=== PATIENT | female | born 1950 | race Caucasian/White ===

== ENCOUNTER 2018-02-09 14:12 | Emergency (ER) | payer MEDICARE ==
[2018-02-09 14:12] VITALS: BMI 41.1
--- NOTE | 2018-02-09 14:44 | ED PDOC ---
Syncope/Near Syncope/Dizziness Time Seen by Provider: 02/09/18 14:35 Chief Complaint (Nursing): Dizziness/Lightheaded History Per: Patient Onset/Duration Of Symptoms: Days (3) Current Symptoms Are (Timing): Still Present Associated Symptoms Preceding Syncopal Episode: No Predromal Symptoms (Sudden Onset) Seizure Or Post-ictal Symptoms: None Possible Causative Factor(s): Vertigo Fall Associated With With Symptoms: No Severity: Mild Additional Complaint(s): Dizziness assoc with headcahes x 3 days. Worse when moving head No LOC. Not assoc with weakness or parasthesias. Past Medical History Vital Signs: Last Vital Signs Temp 98.7 F 02/09/18 14:29 Pulse 63 02/09/18 14:29 Resp 20 02/09/18 14:29 BP 146/81 02/09/18 14:29 Pulse Ox 98 02/09/18 14:29 - Medical History PMH: Anxiety, Arthritis, Asthma, Gastritis, Gall Bladder Disease, HTN, Hypercholesterolemia, Hyperthyroidism, Hypothyroidism Denies: Chronic Kidney Disease - Surgical History Surgical History: Cholecystectomy - Family History Family History: States: Unknown Family Hx - Home Medications Home Medications: Ambulatory Orders Medication Instructions Recorded Levothyroxine Sodium 50 mcg PO DAILY 09/17/14 Melatonin 10 mg PO HS 09/17/14 Metoprolol Tartrate 25 mg PO Q12 09/17/14 Omeprazole 40 mg PO DAILY 09/17/14 Simvastatin 20 mg PO DAILY 09/17/14 Zolpidem Tartrate [Ambien] 10 mg PO HS 09/17/14 Dicyclomine [Bentyl] 10 mg PO QID #0 cap 09/19/14 Acetaminophen/Butalbital/Caf 1 tab PO PRN 11/15/14 [Fioricet 325 mg-50 mg-40 mg] Albuterol HFA [Ventolin HFA 90 1 puff INH Q6 11/15/14 mcg/actuation (8 g)] Ondansetron [Zofran] 4 mg PO Q8H PRN #10 tab 01/18/16 Amoxicillin/Potassium Clav 1 tab PO TID #30 tab 02/09/18 [Augmentin 500 mg-125 mg] Naproxen [Naprosyn] 500 mg PO Q12H #20 tab 02/09/18 - Allergies Allergies/Adverse Reactions: Allergies Allergy/AdvReac Type Severity Reaction Status Date / Time morphine Allergy RASH Verified 02/09/18 14:28 acetaminophen [From Percocet] AdvReac DIZZINESS Verified 02/09/18 14:28 oxycodone HCl [From Percocet] AdvReac DIZZINESS Verified 02/09/18 14:28 Review of Systems ROS Statement: Except As Marked, All Systems Reviewed And Found Negative Gastrointestinal: Negative for: Nausea, Vomiting Neurological: Positive for: Headache, Dizziness Physical Exam - Reviewed Nursing Documentation Reviewed: Yes Vital Signs Reviewed: Yes - Physical Exam Appears: Positive for: Non-toxic, No Acute Distress Head Exam: Positive for: ATRAUMATIC, NORMAL INSPECTION, NORMOCEPHALIC Skin: Positive for: Normal Color, Warm, DRY Eye Exam: Positive for: EOMI, Normal appearance, PERRL ENT: Positive for: Normal ENT Inspection Neck: Positive for: Normal, Painless ROM Cardiovascular/Chest: Positive for: Regular Rate, Rhythm Respiratory: Positive for: CNT, Normal Breath Sounds Gastrointestinal/Abdominal: Positive for: Normal Exam, Soft Back: Positive for: Normal Inspection Extremity: Positive for: Normal ROM Neurologic/Psych: Positive for: Alert, Oriented - ECG O2 Sat by Pulse Oximetry: 98 Disposition - Clinical Impression Clinical Impression: Sinusitis - Patient ED Disposition Is Patient to be Admitted: No Counseled Patient/Family Regarding: Studies Performed, Diagnosis, Need For Followup, Rx Given - Disposition Referrals: Dylon Vazquez MD [Staff Provider] - Disposition: Routine/Home Disposition Time: 18:10 Condition: FAIR Prescriptions: Amoxicillin/Potassium Clav [Augmentin 500 mg-125 mg] 1 tab PO TID #30 tab Naproxen [Naprosyn] 500 mg PO Q12H #20 tab Instructions: Sinusitis in Adults Forms: [facility] (Egyptian) Print Language: UPPER SORBIAN
[2018-02-09 15:00] VITALS: BP 146/81; PULSE 63; RESP 20; TEMP 98.7; O2SAT 98
[2018-02-09] MEDS ORDERED: Sodium Chloride 0.9% 1,000 ML IV STA (16:10)
--- NOTE | 2018-02-09 17:03 | CT ---
PROCEDURE: CT HEAD WITHOUT CONTRAST. HISTORY: r/o bleed COMPARISON: 09/10/2011. TECHNIQUE: Axial computed tomography images were obtained through the head/brain without intravenous contrast. Radiation dose: Total exam DLP = 840.32 mGy-cm. This CT exam was performed using one or more of the following dose reduction techniques: Automated exposure control, adjustment of the mA and/or kV according to patient size, and/or use of iterative reconstruction technique. FINDINGS: HEMORRHAGE: No intracranial hemorrhage. BRAIN: Coy-white matter differentiation is preserved. There is no mass, mass effect or abnormal extra-axial fluid collection. There is no territorial infarction. VENTRICLES: The ventricles are normal in size, shape and configuration. There is stable asymmetric enlargement of the left high parietal sulcus. CALVARIUM: Predominantly clear. PARANASAL SINUSES: There is chronic pansinusitis. There are aerosolized secretions in the right maxillary and right sphenoid sinus. MASTOID AIR CELLS: Unremarkable as visualized. No inflammatory changes. OTHER FINDINGS: None. IMPRESSION: No acute intracranial abnormality. Chronic pansinusitis. Aerosolized secretions in the right maxillary and right sphenoid sinuses may represent superimposed acute sinusitis in the appropriate clinical setting.
--- NOTE | 2018-02-10 08:06 | CARD ---
APPROVED REPORT EKG Measurement Heart [id number] <Conclusion> Sinus bradycardia Left axis deviation Right bundle branch block Abnormal ECG
== END 2018-02-09 18:50 | disposition home or self-care (01) ==
LOC: H.ER 14:12
DX: J32.4 Chronic pansinusitis (principal); I10 Essential (primary) hypertension; J45.909 Unspecified asthma, uncomplicated; Z88.5 Allergy status to narcotic agent; E03.9 Hypothyroidism, unspecified; E05.90 Thyrotoxicosis, unspecified without thyrotoxic crisis or storm
CPT/HCPCS: 70450; 93005; 96374; 99285; J1885; J7040

== ENCOUNTER 2018-07-14 15:27 | Inpatient (IN) | payer MEDICARE ==
[2018-07-14 15:27] VITALS: BMI 41.1
[2018-07-14] MEDS ORDERED: Sodium Chloride 0.9% 1,000 ML IV STA ×2 (16:08→16:45)
[2018-07-14 16:27] LABS: BASO % 0.3 % (0.0-2.0); EOS % 0.2 % (0.0-4.0); LYMPH # 0.4 K/uL (1.0-4.3); LYMPH % 6.9 % (20.0-40.0); MEAN CELL VOLUME 88.4 fl (81.0-99.0); MEAN CORPUSCULAR HEMOGLOBIN 30.3 pg (27.0-31.0); MEAN CORPUSCULAR HGB CONC 34.3 g/dL (33.0-37.0); MEAN PLATELET VOLUME 9.8 fl (7.2-11.7); MONO # 0.1 K/uL (0.0-0.8); MONO % 2.3 % (0.0-10.0); NEUT # 5.5 K/uL (1.8-7.0); NEUT % 90.3 % (50.0-75.0); NRBC % 0.2 % (0.0-0.0); PLATELET COUNT 109 K/uL (130-400); RBC 4.96 Mil/uL (3.80-5.20); RED CELL DISTRIBUTION WIDTH 13.3 % (11.5-14.5); WHITE BLOOD COUNT 6.1 K/uL (4.8-10.8)
[2018-07-14 16:28] LABS: VENOUS BLOOD GAS BASE EXCESS -0.2 mmol/L (0.0-2.0); VENOUS BLOOD GAS PCO2 37 mmHg (40-60); VENOUS BLOOD GAS PO2 27 mm/Hg (30-55); VENOUS BLOOD PH 7.42 (7.32-7.43)
--- NOTE | 2018-07-14 16:28 | ED PDOC ---
HPI: General Adult Time Seen by Provider: 07/14/18 15:38 Chief Complaint (Nursing): Weakness/Neurological Deficit Chief Complaint (Provider): General discomfort History Per: Family History/Exam Limitations: no limitations Additional Complaint(s): 67yo female, brought to ER by daughter who states the patient has not gotten out of bed since yesterday. She reports the patient had shaking chills today, prompting her to call 911 and come to the ER. Currently, patient complaining of low back pain and mild cough. PMD: Dr. Fragoso Past Medical History Reviewed: Historical Data, Nursing Documentation, Vital Signs Vital Signs: Last Vital Signs Temp 98.4 F 07/18/18 08:32 Pulse 73 07/18/18 09:16 Resp 20 07/18/18 08:32 BP 114/68 07/18/18 09:16 Pulse Ox 98 07/18/18 08:32 - Medical History PMH: Anxiety, Arthritis, Asthma, Gastritis, Gall Bladder Disease, HTN, Hypercholesterolemia, Hyperthyroidism, Hypothyroidism Denies: Chronic Kidney Disease - Surgical History Surgical History: Cholecystectomy - Family History Family History: States: No Known Family Hx - Living Arrangements Living Arrangements: With Family - Home Medications Home Medications: Ambulatory Orders Medication Instructions Recorded Levothyroxine Sodium 50 mcg PO DAILY 09/17/14 Melatonin 10 mg PO HS 09/17/14 Metoprolol Tartrate 25 mg PO Q12 09/17/14 Omeprazole 40 mg PO DAILY 09/17/14 Simvastatin 20 mg PO DAILY 09/17/14 Zolpidem Tartrate [Ambien] 10 mg PO HS 09/17/14 Albuterol HFA [Ventolin HFA 90 1 puff INH Q6 11/15/14 mcg/actuation (8 g)] Ondansetron [Zofran Tab] 4 mg PO Q8H PRN #10 tab 01/18/16 Acetaminophen/Butalbital/Caf 1 tab PO Q4 PRN tab 07/17/18 [Fioricet] Meropenem [Merrem IV] 1 gm IVPB Q8 7 Days #21 vial 07/17/18 Dicyclomine [Bentyl] 10 mg PO QID 07/18/18 Enoxaparin [Lovenox] 40 mg SQ DAILY 07/18/18 Pantoprazole Sodium [Protonix] 40 mg PO DAILY 07/18/18 traMADol [Ultram] 50 mg PO Q6 PRN 07/18/18 - Allergies Allergies/Adverse Reactions: Allergies Allergy/AdvReac Type Severity Reaction Status Date / Time morphine Allergy RASH Verified 07/18/18 15:02 acetaminophen [From Percocet] AdvReac DIZZINESS Verified 07/18/18 15:02 oxycodone HCl [From Percocet] AdvReac DIZZINESS Verified 07/18/18 15:02 Review of Systems ROS Statement: Except As Marked, All Systems Reviewed And Found Negative Constitutional: Positive for: Fever, Chills Cardiovascular: Negative for: Chest Pain Respiratory: Positive for: Cough. Negative for: Shortness of Breath Gastrointestinal: Negative for: Nausea, Vomiting, Abdominal Pain Musculoskeletal: Positive for: Back Pain Physical Exam - Reviewed Nursing Documentation Reviewed: Yes Vital Signs Reviewed: Yes - Physical Exam Appears: Positive for: In Acute Distress. Negative for: Non-toxic (+ toxic appearing) Head Exam: Positive for: ATRAUMATIC, NORMAL INSPECTION, NORMOCEPHALIC Skin: Positive for: Warm Eye Exam: Positive for: EOMI, Normal appearance, PERRL ENT: Positive for: Other (dry mucus membranes). Negative for: Pharyngeal Erythema, Tonsillar Exudate, Tonsillar Swelling Neck: Positive for: Normal, Painless ROM Cardiovascular/Chest: Positive for: Regular Rate, Rhythm, Tachycardia Respiratory: Positive for: Normal Breath Sounds. Negative for: Rales, Rhonchi, Wheezing, Respiratory Distress Gastrointestinal/Abdominal: Positive for: Soft, Tenderness (left lower quadrant) . Negative for: Mass, Guarding, Rebound Back: Positive for: Normal Inspection. Negative for: L CVA Tenderness, R CVA Tenderness, Vertebral Tenderness, Muscle Spasm Extremity: Positive for: Normal ROM. Negative for: Pedal Edema Neurologic/Psych: Positive for: Alert, Oriented. Negative for: Motor/Sensory Deficits - Laboratory Results Result Diagrams: 07/17/18 05:55 07/17/18 05:55 - ECG O2 Sat by Pulse Oximetry: 98 (RA) Pulse Ox Interpretation: Normal - Radiology X-Ray: Interpreted by Me X-Ray Interpretation: No Acute Disease Medical Decision Making Medical Decision Making: Impression: Likely Sepsis Plan: * Labs * EKG * Chest x-ray * Urinalysis * CT Abdomen/Pelvis w/ contrast * Rapid Strep * Rapid Influenza * Motrin 600mg PO * IV Fluids 2L * VBG Time: 1700 --Patient signed out to DR. Diaz by this provider, pending CT. Scribe Attestation: Documented by Trisha Graves, acting as a scribe for Damari Jin MD. Provider Scribe Attestation: All medical record entries made by the Scribe were at my direction and personally dictated by me. I have reviewed the chart and agree that the record accurately reflects my personal performance of the history, physical exam, medical decision making, and the department course for this patient. I have also personally directed, reviewed, and agree with the discharge instructions and disposition. Disposition - Clinical Impression Clinical Impression: Abdominal pain, Generalized muscle weakness, Abnormal finding of biliary tract , SIRS (systemic inflammatory response syndrome) - Disposition Disposition: Transfer of Care Disposition Time: 17:00 Condition: STABLE Patient Signed Over To: Addie Diaz
[2018-07-14 16:36] LABS: INR 1.2; PROTHROMBIN TIME 13.3 Seconds (9.8-13.1)
[2018-07-14 16:39] LABS: PARTIAL THROMBOPLASTIN TIME 29.2 Seconds (25.6-37.1)
[2018-07-14 16:44] LABS: ALB/GLOB RATIO 1.1 (1.0-2.1); ALBUMIN 4.5 g/dL (3.5-5.0); ALT/SGPT 19 U/L (9-52); AST/SGOT 49 U/L (14-36); BLOOD UREA NITROGEN 12 mg/dl (7-17); CALCIUM 9.3 mg/dL (8.4-10.2); GFR NON-AFRICAN AMERICAN 50
[2018-07-14 16:51] LABS: SQUAMOUS EPITHIAL 1 /hpf (0-5); URINE BILIRUBIN NEGATIVE (NEGATIVE); URINE BLOOD NEGATIVE (NEGATIVE); URINE CLARITY CLEAR (Clear); URINE COLOR YELLOW (YELLOW); URINE GLUCOSE (UA) NEG (Normal); URINE LEUKOCYTE ESTERASE NEG Leu/uL (Negative); URINE PROTEIN 30 mg/dL (NEGATIVE); URINE UROBILINOGEN 0.2-1.0 mg/dL (0.2-1.0)
--- NOTE | 2018-07-14 17:36 | ED PDOC ---
- Laboratory Results Result Diagrams: 07/15/18 05:35 07/15/18 05:35 - ECG O2 Sat by Pulse Oximetry: 95 (RA) Pulse Ox Interpretation: Normal Medical Decision Making Medical Decision Making: Time: 1699 --Patient signed out to this provider by Dr. Jin. Patient is a 67 year old female presenting for dizziness, lower abdominal pain, back pain, febrile and tachycardic. Patient is meeting SIRS criteria and already received 2 liters. Source is currently unknown. Patient is refusing Tylenol, given ibuprofen. Currently pending CT scan, most likely admission. Time: 1899 --No change in patients status while provider has been managing care. Patient continues to be pending CT and pain control. Patient signed out to Dr. Mendieta. Scribe Attestation: Documented by Kathleen Tafoya, acting as a scribe for Addie Diaz MD Provider Scribe Attestation: All medical record entries made by the Scribe were at my direction and personally dictated by me. I have reviewed the chart and agree that the record accurately reflects my personal performance of the history, physical exam, medical decision making, and the department course for this patient. I have also personally directed, reviewed, and agree with the discharge instructions and disposition. Disposition - Clinical Impression Clinical Impression: Abdominal pain, Generalized muscle weakness - POA Present On Arrival: None - Disposition Disposition: Transfer of Care Disposition Time: 19:00 Condition: STABLE
[2018-07-14 18:33] LABS: BANDS 2 % (0-2); LYMPHOCYTE 7 % (20-50); MONOCYTE 1 % (0-10); NEUTROPHIL 90 % (42-75); PLATELET ESTIMATE DECREASED (NORMAL); TOTAL CELLS COUNTED 100
[2018-07-14] MEDS ORDERED: Iodixanol 320 MG/ML 100 ML BOTTLE IV ONE (18:42)
[2018-07-14] MEDS ORDERED: Sodium Chloride 0.9% 50 ML IV ONE (18:42)
--- NOTE | 2018-07-14 19:42 | ED PDOC ---
- Laboratory Results Result Diagrams: 07/16/18 06:01 07/16/18 06:01 - ECG O2 Sat by Pulse Oximetry: 100 (RA) Pulse Ox Interpretation: Normal Medical Decision Making Medical Decision Making: Time: 1899 --Patient signed out to this provider by Dr. Diaz, pending CT Abdomen. Time: 2042 CT abdomen and pelvis FINDINGS: Lower thorax: Mosaic attenuation of the imaged lungs, new since the prior study. ABDOMEN: Liver: Several redemonstrated smoothly marginated hepatic cysts, the largest of which measures 15 mm. Several subcentimeter low-attenuation lesions in the left liver lobe that are not definitely appreciated on the prior unenhanced examination (series 601, images 29-35). Gallbladder and bile ducts: Redemonstrated cholecystectomy clips. 3 mm moderately high attenuation structure in the distal common bile duct (series 3, image 62). No corresponding abnormality is identified on the prior study. Mild extrahepatic biliary ductal prominence is unchanged from the prior study and within expected limits post cholecystectomy. Pancreas: Redemonstrated fatty infiltration of the pancreas. No pancreatic ductal dilation. No peripancreatic fat stranding or fluid. Spleen: No acute findings. Adrenals: No acute findings. Kidneys and ureters: Bilateral low-attenuation renal lesions, the largest of which measures 15 mm in the right kidney (series 3, image 64; series 602, image 74), measures higher attenuation than simple fluid, and is not definitely identified on the previous unenhanced examination. No urinary tract dilation, perinephric fat stranding, or evident urinary tract calculi. Stomach and bowel: Redemonstrated postsurgical bowel anatomy consistent with prior Juan Carlos-en-Y gastric bypass. No bowel obstruction or other evident acute abnormality of the stomach, small bowel, or colon. Appendix: Normal appendix. PELVIS: Bladder: The bladder is moderately distended but otherwise normal in appearance. Reproductive: No evident acute abnormality of the gynecologic structures. ABDOMEN and PELVIS: Intraperitoneal space: No free intraperitoneal fluid or air. Bones/joints: No evident acute fracture or suspicious osseous lesion. Redemonstrated multilevel degenerative changes of the imaged spine. Soft tissues: Redemonstrated small, fat-containing umbilical hernia with no associated complications. Vasculature: No acute findings. The abdominal aorta is normal in caliber. Lymph nodes: No enlarged abdominal or pelvic lymph nodes by CT criteria. IMPRESSION: 1. No etiology for the patient's left sided pain is identified. 2. Several low-attenuation renal lesions as described above, the largest of which is incompletely characterized but is not consistent with a simple cyst. Follow up per institution protocol. 3. A 3 mm moderately high attenuation structure in the distal common bile duct may be a calculus or neoplasm. No evidence of acute biliary ductal obstruction. If clinically warranted, further evaluation could be obtained with an MRCP. 4. Several redemonstrated small hepatic cysts. Several subcentimeter low- attenuation liver lesions that are not definitely appreciated on the prior unenhanced examination and are incompletely characterized. Follow up per institution protocol. 5. Mosaic attenuation of the imaged lungs, new since the prior study. Differential diagnosis includes but is not limited to subsegmental atelectasis, small airways disease (e.g., asthma, bronchiolitis obliterans), small vessel disease (e.g., chronic pulmonary embolism), and an infiltrative process (e.g., Pneumocystis pneumonia, hypersensitivity pneumonitis, interstitial pneumonitis). 6. The bladder is moderately distended but otherwise normal in appearance. 7. Additional redemonstrated and nonacute findings as described above. 21:17 Reviewed all findings and CT scan. Discussed admission with Dr. Valladares who is patient's PMD, who said he can not admit currently so patient will be admitted to medical services. Spoke with Dr. Fu who will admit patient. Scribe Attestation: Documented by Kathleen Tafoya and Yrn, acting as a scribe for Dixon Mendieta MD Provider Scribe Attestation: All medical record entries made by the Scribe were at my direction and personally dictated by me. I have reviewed the chart and agree that the record accurately reflects my personal performance of the history, physical exam, medical decision making, and the department course for this patient. I have also personally directed, reviewed, and agree with the discharge instructions and disposition. Disposition Discussed With DrAfrica: Nasir Fu Counseled Patient/Family Regarding: Studies Performed, Diagnosis - Clinical Impression Clinical Impression: Abdominal pain, Generalized muscle weakness, Abnormal finding of biliary tract , SIRS (systemic inflammatory response syndrome) - POA Present On Arrival: None - Disposition Disposition: Hospitalized as Observation Patient Disposition Time: 21:00 Condition: STABLE
[2018-07-14] MEDS ORDERED: Piperacillin/Tazobact 3.375 GM in Sodium Chloride 0.9% 100 ML IVPB STA (20:47)
[2018-07-14] MEDS ORDERED: Piperacillin/Tazobact 3.375 gm Inj IVPB ONE (20:53)
[2018-07-14 22:36] LABS: VENOUS BLOOD GAS BASE EXCESS -1.7 mmol/L (0.0-2.0); VENOUS BLOOD GAS PCO2 38 mmHg (40-60); VENOUS BLOOD GAS PO2 54 mm/Hg (30-55); VENOUS BLOOD PH 7.39 (7.32-7.43)
[2018-07-15] MEDS: Piperacillin/Tazobact 3.375 GM in Sodium Chloride 0.9% 100 ML IVPB SCH ×3 (01:46→17:22)
[2018-07-15] MEDS: Albuterol HFA 90 mcg/actuation (8 g) INH SCH ×5 (03:19→21:22)
[2018-07-15] MEDS ORDERED: BUTALBITAL PO SCH (04:00)
[2018-07-15] MEDS ORDERED: ACETAMINOPHEN PO SCH (04:00)
[2018-07-15] MEDS ORDERED: CAFFEINE PO SCH (04:00)
[2018-07-15] MEDS: Levothyroxine 50 MCG TAB PO SCH (05:59)
[2018-07-15 06:18] LABS: BASO % 0.5 % (0.0-2.0); EOS # 0.1 K/uL (0.0-0.7); HEMOGLOBIN 12.9 g/dL (12.0-16.0); LYMPH # 0.9 K/uL (1.0-4.3); LYMPH % 14.4 % (20.0-40.0); MEAN CELL VOLUME 89.4 fl (81.0-99.0); MEAN CORPUSCULAR HGB CONC 33.6 g/dL (33.0-37.0); MEAN PLATELET VOLUME 9.2 fl (7.2-11.7); MONO # 0.5 K/uL (0.0-0.8); MONO % 7.4 % (0.0-10.0); NEUT # 4.7 K/uL (1.8-7.0); NEUT % 76.7 % (50.0-75.0); RBC 4.32 Mil/uL (3.80-5.20); RED CELL DISTRIBUTION WIDTH 13.2 % (11.5-14.5); WHITE BLOOD COUNT 6.2 K/uL (4.8-10.8)
[2018-07-15 06:22] LABS: ALB/GLOB RATIO 1.1 (1.0-2.1); ALBUMIN 3.4 g/dL (3.5-5.0); ALT/SGPT 25 U/L (9-52); AST/SGOT 32 U/L (14-36); BLOOD UREA NITROGEN 13 mg/dl (7-17); CALCIUM 8.5 mg/dL (8.4-10.2); GFR NON-AFRICAN AMERICAN 50
--- NOTE | 2018-07-15 07:34 | CARD ---
APPROVED REPORT Date of service: 07/14/2018 EKG Measurement Heart [id number] <Conclusion> Sinus tachycardia Right bundle branch block Left anterior fascicular block Bifascicular block Minimal voltage criteria for LVH, may be normal variant Abnormal ECG
--- NOTE | 2018-07-15 09:07 | CP.PCM.HP ---
<Saeed Patiño - Last Filed: 07/15/18 18:33> History of Present Illness - History of Present Illness History of Present Illness: Pt seen and examined at bedside with Dr. Fu. 67 yo F with pmhx of asthma, dyslipidemia, htn presented to the ED with diffuse chills, dizziness, lumbar pain and cough. CT A/P with contrast SIRS positive pmd: Dr. Fragoso surg: cholecystectomy, gastric Soc: denies smoking, alcohol, illicit drugs fmhx: breast cancer Allergies to morphine, acetaminophen and oxycodone (percocet) Present on Admission - Present on Admission Any Indicators Present on Admission: No History of Uncontrolled Diabetes: No Review of Systems - Constitutional Constitutional: As Per HPI - Cardiovascular Cardiovascular: absent: Chest Pain - Respiratory Respiratory: absent: Cough, Dyspnea - Gastrointestinal Gastrointestinal: Abdominal Pain - Musculoskeletal Musculoskeletal: Back Pain - Neurological Neurological: Dizziness, Weakness Past Patient History - Infectious Disease Hx of Infectious Diseases: None - Past Medical History & Family History Past Medical History?: Yes - Past Social History Smoking Status: Never Smoked Alcohol: None Drugs: Denies Home Situation {Lives}: With Family - CARDIAC Hx Cardiac Disorders: Yes - PULMONARY Hx Respiratory Disorders: Yes - NEUROLOGICAL Hx Neurological Disorder: No - HEENT Hx HEENT Problems: No - RENAL Hx Chronic Kidney Disease: No - ENDOCRINE/METABOLIC Hx Hyperthyroidism: Yes Hx Hypothyroidism: Yes - HEMATOLOGICAL/ONCOLOGICAL Hx Blood Disorders: No - INTEGUMENTARY Hx Dermatological Problems: No - MUSCULOSKELETAL/RHEUMATOLOGICAL Hx Arthritis: Yes Hx Falls: No - GASTROINTESTINAL Hx Gall Bladder Disease: Yes Hx Gastritis: Yes - GENITOURINARY/GYNECOLOGICAL Hx Genitourinary Disorders: No - PSYCHIATRIC Hx Anxiety: Yes Hx Substance Use: No - SURGICAL HISTORY Hx Cholecystectomy: Yes - ANESTHESIA Hx Anesthesia: Yes Hx Anesthesia Reactions: No Hx Malignant Hyperthermia: No Meds Allergies/Adverse Reactions: Allergies Allergy/AdvReac Type Severity Reaction Status Date / Time morphine Allergy RASH Verified 07/14/18 15:33 acetaminophen [From Percocet] AdvReac DIZZINESS Verified 07/14/18 15:33 oxycodone HCl [From Percocet] AdvReac DIZZINESS Verified 07/14/18 15:33 Physical Exam - Eye Exam Eye Exam: EOMI - Respiratory Exam Respiratory Exam: Clear to Auscultation Bilateral, NORMAL BREATHING PATTERN. absent: Wheezes - Cardiovascular Exam Cardiovascular Exam: +S1, +S2 - GI/Abdominal Exam GI & Abdominal Exam: Normal Bowel Sounds, Soft, Tenderness (mild) - Neurological Exam Neurological exam: Alert, CN II-XII Intact, Oriented x3 - Psychiatric Exam Psychiatric exam: Normal Affect, Normal Mood Results - Vital Signs Recent Vital Signs: Last Vital Signs Temp 97.7 F 07/15/18 07:44 Pulse 67 07/15/18 07:44 Resp 20 07/15/18 07:44 BP 124/70 07/15/18 07:44 Pulse Ox 99 07/15/18 07:44 - Labs Result Diagrams: 07/15/18 05:35 07/15/18 05:35 Labs: Laboratory Results - last 24 hr 07/14/18 07/14/18 07/14/18 10:30 15:48 16:18 WBC 6.1 RBC 4.96 Hgb 15.0 Hct 43.8 MCV 88.4 MCH 30.3 MCHC 34.3 RDW 13.3 Plt Count 109 L D MPV 9.8 Neut % (Auto) 90.3 H Lymph % (Auto) 6.9 L [place] % (Auto) 2.3 Eos % (Auto) 0.2 Baso % (Auto) 0.3 Neut # (Auto) 5.5 Lymph # (Auto) 0.4 L [place] # (Auto) 0.1 Eos # (Auto) 0.0 Baso # (Auto) 0.0 Neutrophils % (Manual) 90 H Band Neutrophils % 2 Lymphocytes % (Manual) 7 L Monocytes % (Manual) 1 Platelet Estimate Decreased L RBC Morphology Normal PT INR APTT pO2 54 VBG pH 7.39 VBG pCO2 38 L VBG HCO3 23.3 VBG Total CO2 24.2 VBG O2 Sat (Calc) 92.1 H VBG Base Excess -1.7 L VBG Potassium 3.4 L Sodium 137.0 Chloride 107.0 Glucose 137 H Lactate 0.8 FiO2 21.0 Potassium Carbon Dioxide Anion Gap BUN Creatinine Est GFR ( Amer) Est GFR (Non-Af Amer) POC Glucose (mg/dL) 111 H Random Glucose Calcium Phosphorus Magnesium Total Bilirubin AST ALT Alkaline Phosphatase Total Protein Albumin Globulin Albumin/Globulin Ratio TSH 3rd Generation Venous Blood Potassium 3.4 L Urine Color Urine Clarity Urine pH Ur Specific [place] Urine Protein Urine Glucose (UA) Urine Ketones Urine Blood Urine Nitrate Urine Bilirubin Urine Urobilinogen Ur Leukocyte Esterase Urine RBC (Auto) Urine Microscopic WBC Ur Squamous Epith Cells Influenza Typ A,B (EIA) Grp A Beta Strep Ag 07/14/18 07/14/18 07/14/18 16:18 16:18 16:25 WBC RBC Hgb Hct MCV MCH MCHC RDW Plt Count MPV Neut % (Auto) Lymph % (Auto) [place] % (Auto) Eos % (Auto) Baso % (Auto) Neut # (Auto) Lymph # (Auto) [place] # (Auto) Eos # (Auto) Baso # (Auto) Neutrophils % (Manual) Band Neutrophils % Lymphocytes % (Manual) Monocytes % (Manual) Platelet Estimate RBC Morphology PT 13.3 H INR 1.2 APTT 29.2 pO2 27 L VBG pH 7.42 VBG pCO2 37 L VBG HCO3 23.5 VBG Total CO2 25.1 VBG O2 Sat (Calc) 62.6 VBG Base Excess -0.2 L VBG Potassium 3.7 Sodium 136 134.0 Chloride 101 101.0 Glucose 116 H Lactate 1.5 FiO2 21.0 Potassium 4.1 Carbon Dioxide 24 Anion Gap 15 BUN 12 Creatinine 1.1 Est GFR ( Amer) > 60 Est GFR (Non-Af Amer) 50 POC Glucose (mg/dL) Random Glucose 114 H Calcium 9.3 Phosphorus 2.1 L Magnesium 1.5 L Total Bilirubin 2.2 H AST 49 H D ALT 19 Alkaline Phosphatase 93 Total Protein 8.5 H Albumin 4.5 Globulin 4.0 H Albumin/Globulin Ratio 1.1 TSH 3rd Generation Venous Blood Potassium 3.7 Urine Color Urine Clarity Urine pH Ur Specific [place] Urine Protein Urine Glucose (UA) Urine Ketones Urine Blood Urine Nitrate Urine Bilirubin Urine Urobilinogen Ur Leukocyte Esterase Urine RBC (Auto) Urine Microscopic WBC Ur Squamous Epith Cells Influenza Typ A,B (EIA) Grp A Beta Strep Ag 07/14/18 07/14/18 07/14/18 16:35 16:35 16:41 WBC RBC Hgb Hct MCV MCH MCHC RDW Plt Count MPV Neut % (Auto) Lymph % (Auto) [place] % (Auto) Eos % (Auto) Baso % (Auto) Neut # (Auto) Lymph # (Auto) [place] # (Auto) Eos # (Auto) Baso # (Auto) Neutrophils % (Manual) Band Neutrophils % Lymphocytes % (Manual) Monocytes % (Manual) Platelet Estimate RBC Morphology PT INR APTT pO2 VBG pH VBG pCO2 VBG HCO3 VBG Total CO2 VBG O2 Sat (Calc) VBG Base Excess VBG Potassium Sodium Chloride Glucose Lactate FiO2 Potassium Carbon Dioxide Anion Gap BUN Creatinine Est GFR ( Amer) Est GFR (Non-Af Amer) POC Glucose (mg/dL) Random Glucose Calcium Phosphorus Magnesium Total Bilirubin AST ALT Alkaline Phosphatase Total Protein Albumin Globulin Albumin/Globulin Ratio TSH 3rd Generation 1.20 Venous Blood Potassium Urine Color Urine Clarity Urine pH Ur Specific [place] Urine Protein Urine Glucose (UA) Urine Ketones Urine Blood Urine Nitrate Urine Bilirubin Urine Urobilinogen Ur Leukocyte Esterase Urine RBC (Auto) Urine Microscopic WBC Ur Squamous Epith Cells Influenza Typ A,B (EIA) Negative for flu a/b Grp A Beta Strep Ag Negative 07/14/18 07/15/18 07/15/18 16:46 05:35 05:35 WBC 6.2 RBC 4.32 Hgb 12.9 D Hct 38.6 MCV 89.4 MCH 30.0 MCHC 33.6 RDW 13.2 Plt Count 100 L MPV 9.2 Neut % (Auto) 76.7 H Lymph % (Auto) 14.4 L [place] % (Auto) 7.4 Eos % (Auto) 1.0 Baso % (Auto) 0.5 Neut # (Auto) 4.7 Lymph # (Auto) 0.9 L [place] # (Auto) 0.5 Eos # (Auto) 0.1 Baso # (Auto) 0.0 Neutrophils % (Manual) Band Neutrophils % Lymphocytes % (Manual) Monocytes % (Manual) Platelet Estimate RBC Morphology PT INR APTT pO2 VBG pH VBG pCO2 VBG HCO3 VBG Total CO2 VBG O2 Sat (Calc) VBG Base Excess VBG Potassium Sodium 140 Chloride 110 H Glucose Lactate FiO2 Potassium 3.9 Carbon Dioxide 25 Anion Gap 9 L BUN 13 Creatinine 1.1 Est GFR ( Amer) > 60 Est GFR (Non-Af Amer) 50 POC Glucose (mg/dL) Random Glucose 93 Calcium 8.5 Phosphorus Magnesium Total Bilirubin 1.3 AST 32 ALT 25 Alkaline Phosphatase 75 Total Protein 6.5 Albumin 3.4 L D Globulin 3.2 Albumin/Globulin Ratio 1.1 TSH 3rd Generation Venous Blood Potassium Urine Color Yellow Urine Clarity Clear Urine pH 6.0 Ur Specific [place] 1.013 Urine Protein 30 Urine Glucose (UA) Neg Urine Ketones Trace Urine Blood Negative Urine Nitrate Negative Urine Bilirubin Negative Urine Urobilinogen 0.2-1.0 Ur Leukocyte Esterase Neg Urine RBC (Auto) < 1 Urine Microscopic WBC 2 Ur Squamous Epith Cells 1 Influenza Typ A,B (EIA) Grp A Beta Strep Ag Assessment & Plan - Assessment and Plan (Free Text) Plan: 67 yo F with pmhx of asthma, dyslipidemia, htn admitted for sepsis and abdominal pain Consulted GI: Dr. Arnold: recommendations appreciated Consulted Id: Dr. Iyer: recommendations appreciated follow blood culture Continue with current treatment/care plan as ordered Case dw Dr. Nickie Patiño MD PGY2 <Nasir Fu - Last Filed: 07/17/18 07:37> Results - Vital Signs Recent Vital Signs: Last Vital Signs Temp 98 F 07/17/18 00:29 Pulse 74 07/17/18 00:29 Resp 19 07/17/18 00:29 BP 127/75 07/17/18 00:29 Pulse Ox 95 07/17/18 00:29 - Labs Result Diagrams: 07/17/18 05:55 07/17/18 05:55 Labs: Laboratory Results - last 24 hr 07/16/18 07/16/18 07/16/18 06:01 06:01 10:04 WBC RBC Hgb Hct MCV MCH MCHC RDW Plt Count Sodium 137 Potassium 3.5 L Chloride 106 Carbon Dioxide 23 Anion Gap 12 BUN 15 Creatinine 1.0 Est GFR ( Amer) > 60 Est GFR (Non-Af Amer) 55 POC Glucose (mg/dL) 97 Random Glucose 99 Calcium 8.4 Phosphorus 3.4 Magnesium 1.9 Total Bilirubin 1.6 H AST 33 ALT 24 Alkaline Phosphatase 64 Total Protein 6.3 Albumin 3.1 L Globulin 3.2 Albumin/Globulin Ratio 1.0 Hepatitis A IgM Ab Negative Hep Bs Antigen Negative Hep B Core IgM Ab Negative Hepatitis C Antibody Negative 07/17/18 07/17/18 05:55 05:55 WBC 4.6 L RBC 3.99 Hgb 11.9 L Hct 35.5 MCV 88.9 MCH 29.9 MCHC 33.6 RDW 13.2 Plt Count 100 L Sodium 137 Potassium 4.1 Chloride 107 Carbon Dioxide 26 Anion Gap 8 L BUN 12 Creatinine 1.0 Est GFR ( Amer) > 60 Est GFR (Non-Af Amer) 55 POC Glucose (mg/dL) Random Glucose 99 Calcium 8.4 Phosphorus Magnesium Total Bilirubin AST ALT Alkaline Phosphatase Total Protein Albumin Globulin Albumin/Globulin Ratio Hepatitis A IgM Ab Hep Bs Antigen Hep B Core IgM Ab Hepatitis C Antibody Assessment & Plan - Assessment and Plan (Free Text) Plan: Patient was personally seen and examined by me in rounds with residents. Available labs and diagnostic data reviewed. Case, Patient's condition and management plan discussed with residents in rounds. Agree with resident's progress note. Plan: As ordered.
--- NOTE | 2018-07-15 09:10 | RAD ---
Date of service: 07/14/2018 HISTORY: Sepsis Patient COMPARISON: Portable chest 09/14/2014. FINDINGS: LUNGS: No active pulmonary disease. PLEURA: No significant pleural effusion identified, no pneumothorax apparent. CARDIOVASCULAR: Normal. OSSEOUS STRUCTURES: No significant abnormalities. VISUALIZED UPPER ABDOMEN: Normal. OTHER FINDINGS: None. IMPRESSION: No interval acute cardiopulmonary disease appreciated.
--- NOTE | 2018-07-15 10:02 | CT ---
Date of service: 07/14/2018 PROCEDURE: CT Abdomen and Pelvis with contrast HISTORY: LLQ pain, low back pain COMPARISON: Abdomen pelvis CT 01/17/2016. TECHNIQUE: Following the intravenous administration of iodinated contrast material, a CT examination of the abdomen and pelvis performed from the domes of the diaphragms to the symphysis pubis with reformatted datasets provided in axial, sagittal and coronal planes. Oral contrast was not administered as per referring physician request. Contrast dose: Omnipaque 300, 95 cc Radiation dose: Total exam DLP = 864.30 mGy-cm. This CT exam was performed using one or more of the following dose reduction techniques: Automated exposure control, adjustment of the mA and/or kV according to patient size, and/or use of iterative reconstruction technique. FINDINGS: LOWER THORAX: Limited bibasilar dependent atelectasis is appreciated. LIVER: Stable complex cyst 16.0 mm greatest dimension again noted at the left lobe laterally. Tiny lucency is again seen more superiorly too small to characterize also the left lobe near the anterior surface. Limited dilatation of the intra and extrahepatic biliary tree likely a function of prior cholecystectomy. Small lucency suggestive of cysts is seen at the right lobe anteriorly inferiorly. GALLBLADDER AND BILE DUCTS: Prior cholecystectomy. Likely postcholecystectomy related dilatation of the common bile duct up to 9 mm. There is a tiny 2-3 mm intermediate density focus at the distal common potentially reflecting choledocholithiasis. Consider follow-up MRCP for additional characterization. PANCREAS: Atrophic but nonfocal. No peripancreatic reaction or edema appreciated grossly. SPLEEN: Unremarkable. ADRENALS: Unremarkable. No mass. KIDNEYS AND URETERS: Complex cyst or benign nodule measures 1.4 cm at the upper midpole right kidney posteriorly not simply changed her prior abdomen pelvis CT dated 09/14/2014. Tiny lucencies too small to characterize at the upper pole left kidney posteromedially. No obstructive uropathy bilaterally or perinephric reaction identified. VASCULATURE: Unremarkable. No aortic aneurysm. BOWEL: Postop change are identified attic collapsed stomach most compatible with gastric bypass surgery once again. Limited evaluation to lack of distention of the stomach and lack of oral contrast delivery. The bowel does not appear obstructed. No pericolic or perienteric reactive change appreciated. APPENDIX: Normal appendix. PERITONEUM: Unremarkable. No free fluid. No free air. LYMPH NODES: Unremarkable. No enlarged lymph nodes. BLADDER: Urinary bladder appears rather distended but is thin and smooth walled. No radiodense urolithiasis associated. REPRODUCTIVE: Limited uterine calcifications suggest probable small fibroid. BONES: No acute fracture. OTHER FINDINGS: None. IMPRESSION: 1. No definitive acute abdominal or pelvic findings including left hemipelvis. 2. Stable left and right lobe hepatic lucencies dating back at least to prior abdomen pelvis CT 09/14/2014. 3. Stable lucency upper to midpole right kidney 1.4 cm greatest dimension as well as sub cm lucency upper pole left kidney. 4. Prior cholecystectomy with stable limited biliary tree dilatation as discussed above. Borderline choledocholithiasis distal CBD. Follow-up MRCP may be helpful. 5. Dilated urinary bladder. Concordant preliminary report from [facility], 07/14/2018.
[2018-07-15] MEDS: Enoxaparin 40 mg Syringe SC SCH (10:07)
[2018-07-15] MEDS: Pantoprazole 40 mg EC Tab PO SCH (10:07)
--- NOTE | 2018-07-15 12:14 | CP.PCM.CON ---
<Best Greco - Last Filed: 07/15/18 12:03> History of Present Illness - History of Present Illness History of Present Illness: PGY-4 GI Fellow Consult Note Pt is a 67 yo HispF with h/o cholescystectomy, HTN, HLD, Hypothyroid, Gastritis presenting from home with complaint of fatigue and lethargy. Patient felt weak and tired all day on 07/13, not wanting to get out of bed; therefore, daughter called EMS to bring patient to the ED. Upon evaluation, she was found to have a fever of 101.9 and tachycardic to 110s. BCx were drawn and dose of pip/tazo given. CT scan revealed multiple findings including 3 mm stricture in distal CBD, no sign of obstruction. Therefore, GI consulted for these findings and elevated bilirubin. During initial encounter, pt reported some left sided abdominal pain and states that her generalized fatigue and weakness are already somewhat better since admission. She states that she had EGD in Nov 2014 with gastritis, neg biopsies. States bowel movements are nearly daily and descibed as formed light brown stools. Denied any hematemesis, melena, hematochezia. 12 point ROS negative other than stated above. MHx:See above SurgHx: CCx, bariatric surg Meds: reviewed in MAR FamHx: Denied fam h/o GI probs. SocHx: Denied x3 All: Reviewed in chart Past Patient History - Infectious Disease Hx of Infectious Diseases: None - Past Medical History & Family History Past Medical History?: Yes - Past Social History Smoking Status: Never Smoked - CARDIAC Hx Cardiac Disorders: Yes - PULMONARY Hx Respiratory Disorders: Yes - NEUROLOGICAL Hx Neurological Disorder: No - HEENT Hx HEENT Problems: No - RENAL Hx Chronic Kidney Disease: No - ENDOCRINE/METABOLIC Hx Hyperthyroidism: Yes Hx Hypothyroidism: Yes - HEMATOLOGICAL/ONCOLOGICAL Hx Blood Disorders: No - INTEGUMENTARY Hx Dermatological Problems: No - MUSCULOSKELETAL/RHEUMATOLOGICAL Hx Arthritis: Yes Hx Falls: No - GASTROINTESTINAL Hx Gall Bladder Disease: Yes Hx Gastritis: Yes - GENITOURINARY/GYNECOLOGICAL Hx Genitourinary Disorders: No - PSYCHIATRIC Hx Anxiety: Yes Hx Substance Use: No - SURGICAL HISTORY Hx Cholecystectomy: Yes - ANESTHESIA Hx Anesthesia: Yes Hx Anesthesia Reactions: No Hx Malignant Hyperthermia: No Meds Allergies/Adverse Reactions: Allergies Allergy/AdvReac Type Severity Reaction Status Date / Time morphine Allergy RASH Verified 07/14/18 15:33 acetaminophen [From Percocet] AdvReac DIZZINESS Verified 07/14/18 15:33 oxycodone HCl [From Percocet] AdvReac DIZZINESS Verified 07/14/18 15:33 - Medications Medications: Current Medications Albuterol (Ventolin Hfa 90 Mcg/Actuation (8 G)) 1 puff INH Q6 [facility] Last Admin: 07/15/18 11:05 Dose: Not Given Atorvastatin Calcium (Lipitor) 10 mg PO DAILY [facility] Last Admin: 07/15/18 10:04 Dose: Not Given Dicyclomine HCl (Bentyl) 10 mg PO QID [facility] Last Admin: 07/15/18 10:04 Dose: Not Given Enoxaparin Sodium (Lovenox) 40 mg SC DAILY [facility] PRN Reason: Protocol Last Admin: 07/15/18 10:07 Dose: 40 mg Metoclopramide HCl 10 mg/ (Sodium Chloride) 52 mls @ 300 mls/hr IVP ONCE PRN PRN Reason: Nausea/Vomiting Piperacillin Sod/Tazobactam (Sod 3.375 gm/ Sodium Chloride) 100 mls @ 100 mls/ hr IVPB Q8 [facility] PRN Reason: Protocol Last Admin: 07/15/18 10:10 Dose: 100 mls/hr Ketorolac Tromethamine (Toradol) 15 mg IVP Q8 PRN PRN Reason: Headache Levothyroxine Sodium (Synthroid) 50 mcg PO DAILY@0630 [facility] Last Admin: 07/15/18 05:59 Dose: 50 mcg Metoprolol Tartrate (Lopressor) 25 mg PO Q12 [facility] Last Admin: 07/15/18 10:05 Dose: 25 mg Ondansetron HCl (Zofran Tab) 4 mg PO Q8H PRN PRN Reason: Nausea/Vomiting Pantoprazole Sodium (Protonix Ec Tab) 40 mg PO DAILY [facility] Last Admin: 07/15/18 10:07 Dose: Not Given Zolpidem Tartrate (Ambien) 10 mg PO HS PRN PRN Reason: Insomnia Physical Exam - Constitutional Appears: Well, No Acute Distress - Head Exam Head Exam: ATRAUMATIC, NORMAL INSPECTION - Eye Exam Eye Exam: EOMI. absent: Conjunctival injection, Scleral icterus - ENT Exam ENT Exam: Mucous Membranes Dry, Normal External Ear Exam. absent: Mucous Membranes Moist - Respiratory Exam Respiratory Exam: Clear to Auscultation Bilateral, NORMAL BREATHING PATTERN. absent: Accessory Muscle Use - Cardiovascular Exam Cardiovascular Exam: REGULAR RHYTHM, RRR - GI/Abdominal Exam GI & Abdominal Exam: Normal Bowel Sounds, Soft. absent: Bruit, Diminished Bowel Sounds, Distended, Firm, Guarding, Hernia, Organomegaly, Rigid, Tenderness - Rectal Exam Rectal Exam: Deferred - Neurological Exam Neurological exam: Alert, CN II-XII Intact, Oriented x3 - Psychiatric Exam Psychiatric exam: Normal Affect, Normal Mood - Skin Skin Exam: Normal Color, Warm Results - Vital Signs Recent Vital Signs: Last Vital Signs Temp 97.7 F 07/15/18 07:44 Pulse 67 07/15/18 10:05 Resp 20 07/15/18 07:44 BP 124/70 07/15/18 10:05 Pulse Ox 99 07/15/18 07:44 - Labs Result Diagrams: 07/15/18 05:35 07/15/18 05:35 Labs: Laboratory Results - last 24 hr 07/14/18 07/14/18 07/14/18 10:30 15:48 16:18 WBC 6.1 RBC 4.96 Hgb 15.0 Hct 43.8 MCV 88.4 MCH 30.3 MCHC 34.3 RDW 13.3 Plt Count 109 L D MPV 9.8 Neut % (Auto) 90.3 H Lymph % (Auto) 6.9 L [place] % (Auto) 2.3 Eos % (Auto) 0.2 Baso % (Auto) 0.3 Neut # (Auto) 5.5 Lymph # (Auto) 0.4 L [place] # (Auto) 0.1 Eos # (Auto) 0.0 Baso # (Auto) 0.0 Neutrophils % (Manual) 90 H Band Neutrophils % 2 Lymphocytes % (Manual) 7 L Monocytes % (Manual) 1 Platelet Estimate Decreased L RBC Morphology Normal PT INR APTT pO2 54 VBG pH 7.39 VBG pCO2 38 L VBG HCO3 23.3 VBG Total CO2 24.2 VBG O2 Sat (Calc) 92.1 H VBG Base Excess -1.7 L VBG Potassium 3.4 L Sodium 137.0 Chloride 107.0 Glucose 137 H Lactate 0.8 FiO2 21.0 Potassium Carbon Dioxide Anion Gap BUN Creatinine Est GFR ( Amer) Est GFR (Non-Af Amer) POC Glucose (mg/dL) 111 H Random Glucose Calcium Phosphorus Magnesium Total Bilirubin AST ALT Alkaline Phosphatase Total Protein Albumin Globulin Albumin/Globulin Ratio TSH 3rd Generation Venous Blood Potassium 3.4 L Urine Color Urine Clarity Urine pH Ur Specific [place] Urine Protein Urine Glucose (UA) Urine Ketones Urine Blood Urine Nitrate Urine Bilirubin Urine Urobilinogen Ur Leukocyte Esterase Urine RBC (Auto) Urine Microscopic WBC Ur Squamous Epith Cells Influenza Typ A,B (EIA) Grp A Beta Strep Ag 07/14/18 07/14/18 07/14/18 16:18 16:18 16:25 WBC RBC Hgb Hct MCV MCH MCHC RDW Plt Count MPV Neut % (Auto) Lymph % (Auto) [place] % (Auto) Eos % (Auto) Baso % (Auto) Neut # (Auto) Lymph # (Auto) [place] # (Auto) Eos # (Auto) Baso # (Auto) Neutrophils % (Manual) Band Neutrophils % Lymphocytes % (Manual) Monocytes % (Manual) Platelet Estimate RBC Morphology PT 13.3 H INR 1.2 APTT 29.2 pO2 27 L VBG pH 7.42 VBG pCO2 37 L VBG HCO3 23.5 VBG Total CO2 25.1 VBG O2 Sat (Calc) 62.6 VBG Base Excess -0.2 L VBG Potassium 3.7 Sodium 136 134.0 Chloride 101 101.0 Glucose 116 H Lactate 1.5 FiO2 21.0 Potassium 4.1 Carbon Dioxide 24 Anion Gap 15 BUN 12 Creatinine 1.1 Est GFR ( Amer) > 60 Est GFR (Non-Af Amer) 50 POC Glucose (mg/dL) Random Glucose 114 H Calcium 9.3 Phosphorus 2.1 L Magnesium 1.5 L Total Bilirubin 2.2 H AST 49 H D ALT 19 Alkaline Phosphatase 93 Total Protein 8.5 H Albumin 4.5 Globulin 4.0 H Albumin/Globulin Ratio 1.1 TSH 3rd Generation Venous Blood Potassium 3.7 Urine Color Urine Clarity Urine pH Ur Specific [place] Urine Protein Urine Glucose (UA) Urine Ketones Urine Blood Urine Nitrate Urine Bilirubin Urine Urobilinogen Ur Leukocyte Esterase Urine RBC (Auto) Urine Microscopic WBC Ur Squamous Epith Cells Influenza Typ A,B (EIA) Grp A Beta Strep Ag 07/14/18 07/14/18 07/14/18 16:35 16:35 16:41 WBC RBC Hgb Hct MCV MCH MCHC RDW Plt Count MPV Neut % (Auto) Lymph % (Auto) [place] % (Auto) Eos % (Auto) Baso % (Auto) Neut # (Auto) Lymph # (Auto) [place] # (Auto) Eos # (Auto) Baso # (Auto) Neutrophils % (Manual) Band Neutrophils % Lymphocytes % (Manual) Monocytes % (Manual) Platelet Estimate RBC Morphology PT INR APTT pO2 VBG pH VBG pCO2 VBG HCO3 VBG Total CO2 VBG O2 Sat (Calc) VBG Base Excess VBG Potassium Sodium Chloride Glucose Lactate FiO2 Potassium Carbon Dioxide Anion Gap BUN Creatinine Est GFR ( Amer) Est GFR (Non-Af Amer) POC Glucose (mg/dL) Random Glucose Calcium Phosphorus Magnesium Total Bilirubin AST ALT Alkaline Phosphatase Total Protein Albumin Globulin Albumin/Globulin Ratio TSH 3rd Generation 1.20 Venous Blood Potassium Urine Color Urine Clarity Urine pH Ur Specific [place] Urine Protein Urine Glucose (UA) Urine Ketones Urine Blood Urine Nitrate Urine Bilirubin Urine Urobilinogen Ur Leukocyte Esterase Urine RBC (Auto) Urine Microscopic WBC Ur Squamous Epith Cells Influenza Typ A,B (EIA) Negative for flu a/b Grp A Beta Strep Ag Negative 07/14/18 07/15/18 07/15/18 16:46 05:35 05:35 WBC 6.2 RBC 4.32 Hgb 12.9 D Hct 38.6 MCV 89.4 MCH 30.0 MCHC 33.6 RDW 13.2 Plt Count 100 L MPV 9.2 Neut % (Auto) 76.7 H Lymph % (Auto) 14.4 L [place] % (Auto) 7.4 Eos % (Auto) 1.0 Baso % (Auto) 0.5 Neut # (Auto) 4.7 Lymph # (Auto) 0.9 L [place] # (Auto) 0.5 Eos # (Auto) 0.1 Baso # (Auto) 0.0 Neutrophils % (Manual) Band Neutrophils % Lymphocytes % (Manual) Monocytes % (Manual) Platelet Estimate RBC Morphology PT INR APTT pO2 VBG pH VBG pCO2 VBG HCO3 VBG Total CO2 VBG O2 Sat (Calc) VBG Base Excess VBG Potassium Sodium 140 Chloride 110 H Glucose Lactate FiO2 Potassium 3.9 Carbon Dioxide 25 Anion Gap 9 L BUN 13 Creatinine 1.1 Est GFR ( Amer) > 60 Est GFR (Non-Af Amer) 50 POC Glucose (mg/dL) Random Glucose 93 Calcium 8.5 Phosphorus Magnesium Total Bilirubin 1.3 AST 32 ALT 25 Alkaline Phosphatase 75 Total Protein 6.5 Albumin 3.4 L D Globulin 3.2 Albumin/Globulin Ratio 1.1 TSH 3rd Generation Venous Blood Potassium Urine Color Yellow Urine Clarity Clear Urine pH 6.0 Ur Specific [place] 1.013 Urine Protein 30 Urine Glucose (UA) Neg Urine Ketones Trace Urine Blood Negative Urine Nitrate Negative Urine Bilirubin Negative Urine Urobilinogen 0.2-1.0 Ur Leukocyte Esterase Neg Urine RBC (Auto) < 1 Urine Microscopic WBC 2 Ur Squamous Epith Cells 1 Influenza Typ A,B (EIA) Grp A Beta Strep Ag Assessment & Plan - Assessment and Plan (Free Text) Assessment: 67 yo Hisp Female presenting fatigue, weakness found to be febrile and tachycardic. GI consulted for biliary stricture and elevated bilirubin. # Biliary stricture, with elevated bilirubin: [address] report. No obstruction seen. Has h/o dilation in the past with unremarkable MRCP in 2013. Perhaps related to post-cholecystectomy cahnges, though need to further evaluate with MRCP while inpatient. Bilirubin already within normal limits making cholangitis very unlikely. # Fever, tachycardia: Due to GNR bactermemia, unclear source. Doubt cholangitis given normal bili and ALP today. Plan: - MRCP today - Check for viral hep - Agree with antibiotics - Will likely need outpatient EUS follow-up - Trend labs Pt seen and examined with Dr. Arnold; see attestation for further recs and changes <Raj Arnold - Last Filed: 07/15/18 18:29> Meds - Medications Medications: Current Medications Albuterol (Ventolin Hfa 90 Mcg/Actuation (8 G)) 1 puff INH Q6 [facility] Last Admin: 07/15/18 17:43 Dose: Not Given Atorvastatin Calcium (Lipitor) 10 mg PO DAILY [facility] Last Admin: 07/15/18 10:04 Dose: Not Given Dicyclomine HCl (Bentyl) 10 mg PO QID [facility] Last Admin: 07/15/18 13:00 Dose: Not Given Enoxaparin Sodium (Lovenox) 40 mg SC DAILY [facility] PRN Reason: Protocol Last Admin: 07/15/18 10:07 Dose: 40 mg Metoclopramide HCl 10 mg/ (Sodium Chloride) 52 mls @ 300 mls/hr IVP ONCE PRN PRN Reason: Nausea/Vomiting Piperacillin Sod/Tazobactam (Sod 3.375 gm/ Sodium Chloride) 100 mls @ 100 mls/ hr IVPB Q8 [facility] PRN Reason: Protocol Last Admin: 07/15/18 17:22 Dose: 100 mls/hr Dextrose/Sodium Chloride (Dextrose 5%/0.45% Ns 1000 Ml) 1,000 mls @ 80 mls/hr IV .[id number] [facility] Stop: 07/16/18 15:16 Last Admin: 07/15/18 15:25 Dose: 80 mls/hr Ketorolac Tromethamine (Toradol) 15 mg IVP Q8 PRN PRN Reason: Headache Last Admin: 07/15/18 17:12 Dose: 15 mg Levothyroxine Sodium (Synthroid) 50 mcg PO DAILY@0630 [facility] Last Admin: 07/15/18 05:59 Dose: 50 mcg Metoprolol Tartrate (Lopressor) 25 mg PO Q12 [facility] Last Admin: 07/15/18 10:05 Dose: 25 mg Ondansetron HCl (Zofran Tab) 4 mg PO Q8H PRN PRN Reason: Nausea/Vomiting Pantoprazole Sodium (Protonix Ec Tab) 40 mg PO DAILY [facility] Last Admin: 07/15/18 10:07 Dose: Not Given Zolpidem Tartrate (Ambien) 10 mg PO HS PRN PRN Reason: Insomnia Results - Vital Signs Recent Vital Signs: Last Vital Signs Temp 97.7 F 07/15/18 07:44 Pulse 67 07/15/18 10:05 Resp 20 07/15/18 07:44 BP 124/70 07/15/18 10:05 Pulse Ox 99 07/15/18 07:44 - Labs Result Diagrams: 07/15/18 05:35 07/15/18 05:35 Labs: Laboratory Results - last 24 hr 07/14/18 07/14/18 07/15/18 10:30 16:18 05:35 WBC 6.2 RBC 4.32 Hgb 12.9 D Hct 38.6 MCV 89.4 MCH 30.0 MCHC 33.6 RDW 13.2 Plt Count 100 L MPV 9.2 Neut % (Auto) 76.7 H Lymph % (Auto) 14.4 L [place] % (Auto) 7.4 Eos % (Auto) 1.0 Baso % (Auto) 0.5 Neut # (Auto) 4.7 Lymph # (Auto) 0.9 L [place] # (Auto) 0.5 Eos # (Auto) 0.1 Baso # (Auto) 0.0 Neutrophils % (Manual) 90 H Band Neutrophils % 2 Lymphocytes % (Manual) 7 L Monocytes % (Manual) 1 Platelet Estimate Decreased L RBC Morphology Normal pO2 54 VBG pH 7.39 VBG pCO2 38 L VBG HCO3 23.3 VBG Total CO2 24.2 VBG O2 Sat (Calc) 92.1 H VBG Base Excess -1.7 L VBG Potassium 3.4 L Sodium 137.0 Chloride 107.0 Glucose 137 H Lactate 0.8 FiO2 21.0 Potassium Carbon Dioxide Anion Gap BUN Creatinine Est GFR ( Amer) Est GFR (Non-Af Amer) Random Glucose Calcium Total Bilirubin AST ALT Alkaline Phosphatase Total Protein Albumin Globulin Albumin/Globulin Ratio Venous Blood Potassium 3.4 L 07/15/18 05:35 WBC RBC Hgb Hct MCV MCH MCHC RDW Plt Count MPV Neut % (Auto) Lymph % (Auto) [place] % (Auto) Eos % (Auto) Baso % (Auto) Neut # (Auto) Lymph # (Auto) [place] # (Auto) Eos # (Auto) Baso # (Auto) Neutrophils % (Manual) Band Neutrophils % Lymphocytes % (Manual) Monocytes % (Manual) Platelet Estimate RBC Morphology pO2 VBG pH VBG pCO2 VBG HCO3 VBG Total CO2 VBG O2 Sat (Calc) VBG Base Excess VBG Potassium Sodium 140 Chloride 110 H Glucose Lactate FiO2 Potassium 3.9 Carbon Dioxide 25 Anion Gap 9 L BUN 13 Creatinine 1.1 Est GFR ( Amer) > 60 Est GFR (Non-Af Amer) 50 Random Glucose 93 Calcium 8.5 Total Bilirubin 1.3 AST 32 ALT 25 Alkaline Phosphatase 75 Total Protein 6.5 Albumin 3.4 L D Globulin 3.2 Albumin/Globulin Ratio 1.1 Venous Blood Potassium Attending/Attestation - Attestation I have personally seen and examined this patient.: Yes I have fully participated in the care of the patient.: Yes I have reviewed all pertinent clinical information: Yes Notes (Text): 07/15/18 18:24 Patient seen earlier today with GI fellow. This is a 67 yr old italian speaking F presenting with past history of cholecystectomy, gastric bypass, gastroparesis admitted with fatigue, weakness found to be febrile and tachycardic with blood culture positive for GNR. GI consulted for dilated CBD which is chronic for past 4 years on all imaging. Low risk for malignancy likely related to prior to CCY and age. LFt normal now. MRCP done, pending official read. Abdominal pain is chronic. Will benefit from outpatient EGD/EUS to rule out anastomotic ulcer and do further work up of dilated duct. PPi daily and clear liquid diet. F/U hepatitis serologies. Discussed with the primary team. No s/s of cholangitis or biliary sepsis.
[2018-07-15] MEDS: Dextrose 5%/0.45% NS 1,000 ML IV SCH (15:25)
[2018-07-15] MEDS ORDERED: Gadodiamide 287 MG/ML VIAL (15ML) IV ONE (15:53)
[2018-07-15] MEDS ORDERED: Sodium Chloride 0.9% 50 ML IV ONE (15:53)
--- NOTE | 2018-07-15 19:07 | MRI ---
Date of service: 07/15/18 MRI abdomen without/with IV contrast MRCP Indication: Fever with elevated bili, abnormal CT Technique: Multiplanar, multi sequence magnetic resonance images of the abdomen were obtained without and with the administration of intravenous gadolinium using a multi phase abdomen protocol. Rotating maximum intensity projection images of the biliary system were generated. A total of 10/1930 images submitted for review Comparison: CT abdomen and pelvis with IV contrast performed 07/14/18 Findings: Examination limited by motion. Multiple probable septated and simple cysts. Left hepatic lobe ill-defined peripherally enhancing lesion measures approximately 3 cm and appears cystic (adjacent to well-defined cyst which has been present since 2014) ; there is associated restricted diffusion and edema. Cholecystectomy. Mild intrahepatic biliary dilatation. The common bile duct is dilated measuring approximately 9 mm in diameter with irregular abrupt distal taper. The pancreatic duct does not appear dilated. The spleen, pancreas, and adrenal glands appear unremarkable. Complex appearing 1 cm right renal cyst, possibly hemorrhagic or proteinaceous. Two simple left renal cyst. No bulky adenopathy identified. Postoperative changes of the stomach consistent with known bypass surgery. Limited visualized upper abdominal bowel loops demonstrates diverticulosis without CT evidence of acute diverticulitis. Limited views of the inferior thorax appear unremarkable. Scoliosis. Degenerative changes of the osseous structures. Impression: Evidence of any irregular abrupt distal taper of the common bile duct; correlate clinically for possibility of primary or secondary stricture. Mild dilatation of the common bile duct and intrahepatic biliary dilatation in the setting of cholecystectomy. Left hepatic lobe ill-defined peripherally enhancing lesion measures approximately 3 cm and appears cystic; there is associated restricted diffusion and edema. Abscess is not excluded in the setting of fever. Cystic neoplasm is also consideration. Multiple probable septated and simple cysts. Additional findings as above.
--- NOTE | 2018-07-15 20:33 | CP.PCM.PN ---
Subjective - Date & Time of Evaluation Date of Evaluation: 07/15/18 Time of Evaluation: 20:34 - Subjective Subjective: I D NOTE PATIENT c GRAM NEGATIVE BACTEREMIA AWAIT IDENTIFICATION AGREE c presant antibiotic coverage Objective - Vital Signs/Intake and Output Vital Signs (last 24 hours): Temp Pulse Resp BP Pulse Ox 97.7 F 67 20 124/70 99 07/15/18 18:47 07/15/18 18:47 07/15/18 18:47 07/15/18 18:47 07/15/18 07:44 - Medications Medications: Current Medications Albuterol (Ventolin Hfa 90 Mcg/Actuation (8 G)) 1 puff INH Q6 [facility] Last Admin: 07/15/18 18:25 Dose: 1 puff Atorvastatin Calcium (Lipitor) 10 mg PO DAILY [facility] Last Admin: 07/15/18 10:04 Dose: Not Given Dicyclomine HCl (Bentyl) 10 mg PO QID [facility] Last Admin: 07/15/18 18:33 Dose: 10 mg Enoxaparin Sodium (Lovenox) 40 mg SC DAILY [facility] PRN Reason: Protocol Last Admin: 07/15/18 10:07 Dose: 40 mg Metoclopramide HCl 10 mg/ (Sodium Chloride) 52 mls @ 300 mls/hr IVP ONCE PRN PRN Reason: Nausea/Vomiting Piperacillin Sod/Tazobactam (Sod 3.375 gm/ Sodium Chloride) 100 mls @ 100 mls/ hr IVPB Q8 [facility] PRN Reason: Protocol Last Admin: 07/15/18 17:22 Dose: 100 mls/hr Dextrose/Sodium Chloride (Dextrose 5%/0.45% Ns 1000 Ml) 1,000 mls @ 80 mls/hr IV .[id number] [facility] Stop: 07/16/18 15:16 Last Admin: 07/15/18 15:25 Dose: 80 mls/hr Ketorolac Tromethamine (Toradol) 15 mg IVP Q8 PRN PRN Reason: Headache Last Admin: 07/15/18 17:12 Dose: 15 mg Levothyroxine Sodium (Synthroid) 50 mcg PO DAILY@0630 [facility] Last Admin: 07/15/18 05:59 Dose: 50 mcg Metoprolol Tartrate (Lopressor) 25 mg PO Q12 [facility] Last Admin: 07/15/18 10:05 Dose: 25 mg Ondansetron HCl (Zofran Tab) 4 mg PO Q8H PRN PRN Reason: Nausea/Vomiting Pantoprazole Sodium (Protonix Ec Tab) 40 mg PO DAILY [facility] Last Admin: 07/15/18 10:07 Dose: Not Given Zolpidem Tartrate (Ambien) 10 mg PO HS PRN PRN Reason: Insomnia - Labs Labs: 07/15/18 05:35 07/15/18 05:35 PT 13.3 Seconds (9.8-13.1) H 07/14/18 16:18 INR 1.2 07/14/18 16:18 APTT 29.2 Seconds (25.6-37.1) 07/14/18 16:18
[2018-07-16] MEDS: Piperacillin/Tazobact 3.375 GM in Sodium Chloride 0.9% 100 ML IVPB SCH ×3 (00:47→17:00)
[2018-07-16] MEDS: Dextrose 5%/0.45% NS 1,000 ML IV SCH (03:30)
[2018-07-16] MEDS: Albuterol HFA 90 mcg/actuation (8 g) INH SCH ×3 (04:59→16:45)
[2018-07-16 06:36] LABS: MEAN CELL VOLUME 89.3 fl (81.0-99.0); MEAN CORPUSCULAR HGB CONC 33.6 g/dL (33.0-37.0); RED CELL DISTRIBUTION WIDTH 12.7 % (11.5-14.5); WHITE BLOOD COUNT 4.5 K/uL (4.8-10.8)
[2018-07-16 07:40] LABS: ALBUMIN 3.1 g/dL (3.5-5.0); ALT/SGPT 24 U/L (9-52); AST/SGOT 33 U/L (14-36); BLOOD UREA NITROGEN 15 mg/dl (7-17); CALCIUM 8.4 mg/dL (8.4-10.2); GFR NON-AFRICAN AMERICAN 55
[2018-07-16] MEDS: Levothyroxine 50 MCG TAB PO SCH (07:56)
--- NOTE | 2018-07-16 09:15 | CP.PCM.PN ---
<Saeed Patiño - Last Filed: 07/16/18 14:37> Subjective - Date & Time of Evaluation Date of Evaluation: 07/16/18 Time of Evaluation: 07:40 - Subjective Subjective: Pt seen and examined at bedside with Dr. Fu. Denies acute events overnight. Slowly tapering diet from liquid to solid Improving abdo pain. Reports progressing headache Objective - Vital Signs/Intake and Output Vital Signs (last 24 hours): Temp Pulse Resp BP Pulse Ox 98.2 F 80 20 104/68 93 L 07/16/18 08:23 07/16/18 08:23 07/16/18 08:23 07/16/18 08:23 07/16/18 08:23 - Medications Medications: Current Medications Acetaminophen/Butalbital/Caffeine (Fioricet) 1 tab PO Q4 PRN PRN Reason: Headache Albuterol (Ventolin Hfa 90 Mcg/Actuation (8 G)) 1 puff INH Q6 [facility] Last Admin: 07/16/18 04:59 Dose: 1 puff Atorvastatin Calcium (Lipitor) 10 mg PO DAILY [facility] Last Admin: 07/15/18 10:04 Dose: Not Given Dicyclomine HCl (Bentyl) 10 mg PO QID [facility] Last Admin: 07/15/18 21:22 Dose: 10 mg Enoxaparin Sodium (Lovenox) 40 mg SC DAILY [facility] PRN Reason: Protocol Last Admin: 07/15/18 10:07 Dose: 40 mg Metoclopramide HCl 10 mg/ (Sodium Chloride) 52 mls @ 300 mls/hr IVP ONCE PRN PRN Reason: Nausea/Vomiting Piperacillin Sod/Tazobactam (Sod 3.375 gm/ Sodium Chloride) 100 mls @ 100 mls/ hr IVPB Q8 [facility] PRN Reason: Protocol Last Admin: 07/16/18 00:47 Dose: 100 mls/hr Dextrose/Sodium Chloride (Dextrose 5%/0.45% Ns 1000 Ml) 1,000 mls @ 80 mls/hr IV .[id number] [facility] Stop: 07/16/18 15:16 Last Admin: 07/16/18 03:30 Dose: Not Given Ketorolac Tromethamine (Toradol) 15 mg IVP Q8 PRN PRN Reason: Headache Last Admin: 07/16/18 01:20 Dose: 15 mg Levothyroxine Sodium (Synthroid) 50 mcg PO DAILY@0630 [facility] Last Admin: 07/16/18 07:56 Dose: 50 mcg Metoprolol Tartrate (Lopressor) 25 mg PO Q12 [facility] Last Admin: 07/15/18 21:22 Dose: 25 mg Ondansetron HCl (Zofran Tab) 4 mg PO Q8H PRN PRN Reason: Nausea/Vomiting Pantoprazole Sodium (Protonix Ec Tab) 40 mg PO DAILY [facility] Last Admin: 07/15/18 10:07 Dose: Not Given Tramadol HCl (Ultram) 50 mg PO Q6 PRN PRN Reason: Pain, severe (8-10) Last Admin: 07/16/18 05:01 Dose: 50 mg Zolpidem Tartrate (Ambien) 10 mg PO HS PRN PRN Reason: Insomnia Last Admin: 07/16/18 00:50 Dose: 10 mg - Labs Labs: 07/16/18 06:01 07/16/18 06:01 PT 13.3 Seconds (9.8-13.1) H 07/14/18 16:18 INR 1.2 07/14/18 16:18 APTT 29.2 Seconds (25.6-37.1) 07/14/18 16:18 - Constitutional Appears: Non-toxic - Eye Exam Eye Exam: EOMI - Respiratory Exam Respiratory Exam: Clear to Ausculation Bilateral, NORMAL BREATHING PATTERN - Cardiovascular Exam Cardiovascular Exam: +S1, +S2 - GI/Abdominal Exam GI & Abdominal Exam: Soft, Normal Bowel Sounds. absent: Tenderness - Neurological Exam Neurological Exam: Alert, Awake, CN II-XII Intact, Oriented x3 - Psychiatric Exam Psychiatric exam: Normal Affect, Normal Mood Assessment and Plan - Assessment and Plan (Free Text) Plan: GI: Dr. Arnold and ID: Dr. Block on board; further recs appreciated Pending liver biopsy MRCP and blood culture reviewed; Fioricet ordered for headache. Per patient, she had reaction of flashing vision with percocet approximately 1 year ago. She has since taken Acetaminphen without adverse affects Continue current treatment/care plan as ordered Case dw Dr Nickie Patiño MD PGY2 <Nasir Fu - Last Filed: 07/17/18 07:41> Objective - Vital Signs/Intake and Output Vital Signs (last 24 hours): Temp Pulse Resp BP Pulse Ox 98 F 74 19 127/75 95 07/17/18 00:29 07/17/18 00:29 07/17/18 00:29 07/17/18 00:29 07/17/18 00:29 - Medications Medications: Current Medications Acetaminophen/Butalbital/Caffeine (Fioricet) 1 tab PO Q4 PRN PRN Reason: Headache Last Admin: 07/16/18 16:47 Dose: 1 tab Albuterol (Ventolin Hfa 90 Mcg/Actuation (8 G)) 1 puff INH Q6 [facility] Last Admin: 07/16/18 16:45 Dose: Not Given Atorvastatin Calcium (Lipitor) 10 mg PO DAILY [facility] Last Admin: 07/16/18 09:58 Dose: 10 mg Dicyclomine HCl (Bentyl) 10 mg PO QID [facility] Last Admin: 07/16/18 21:27 Dose: 10 mg Enoxaparin Sodium (Lovenox) 40 mg SC DAILY [facility] PRN Reason: Protocol Last Admin: 07/16/18 09:57 Dose: 40 mg Metoclopramide HCl 10 mg/ (Sodium Chloride) 52 mls @ 300 mls/hr IVP ONCE PRN PRN Reason: Nausea/Vomiting Piperacillin Sod/Tazobactam (Sod 3.375 gm/ Sodium Chloride) 100 mls @ 100 mls/ hr IVPB Q8 [facility] PRN Reason: Protocol Last Admin: 07/17/18 01:03 Dose: 100 mls/hr Ketorolac Tromethamine (Toradol) 15 mg IVP Q8 PRN PRN Reason: Headache Last Admin: 07/16/18 01:20 Dose: 15 mg Levothyroxine Sodium (Synthroid) 50 mcg PO DAILY@0630 [facility] Last Admin: 07/17/18 06:26 Dose: 50 mcg Metoprolol Tartrate (Lopressor) 25 mg PO Q12 [facility] Last Admin: 07/16/18 21:26 Dose: 25 mg Ondansetron HCl (Zofran Tab) 4 mg PO Q8H PRN PRN Reason: Nausea/Vomiting Pantoprazole Sodium (Protonix Ec Tab) 40 mg PO DAILY [facility] Last Admin: 07/16/18 09:59 Dose: 40 mg Tramadol HCl (Ultram) 50 mg PO Q6 PRN PRN Reason: Pain, severe (8-10) Last Admin: 07/16/18 05:01 Dose: 50 mg Zolpidem Tartrate (Ambien) 10 mg PO HS PRN PRN Reason: Insomnia Last Admin: 07/16/18 21:26 Dose: 10 mg - Labs Labs: 07/17/18 05:55 07/17/18 05:55 PT 13.3 Seconds (9.8-13.1) H 07/14/18 16:18 INR 1.2 07/14/18 16:18 APTT 29.2 Seconds (25.6-37.1) 07/14/18 16:18 Assessment and Plan - Assessment and Plan (Free Text) Plan: Patient was personally seen and examined by me in rounds with residents. Available labs and diagnostic data reviewed. Case, Patient's condition and management plan discussed with residents in rounds. Agree with resident's progress note. Plan: As ordered.
[2018-07-16] MEDS: Enoxaparin 40 mg Syringe SC SCH (09:57)
[2018-07-16] MEDS: Pantoprazole 40 mg EC Tab PO SCH (09:59)
[2018-07-16] MEDS ORDERED: Potassium Chloride 20 mEq ER Tab PO ONE (10:50)
[2018-07-16] MEDS: Apap-Butalbital-Caffeine 325-50-40mg Tab PO PRN ×2 (11:12→16:47)
--- NOTE | 2018-07-16 11:29 | CP.PCM.PCO ---
Physician Communication Note - Physician Communication Note Physician Communication Note: CT reviewed. Informed team she needs IR liver biopsy
[2018-07-16 12:07] LABS: HEPATITIS B SURFACE AG Negative (NEGATIVE)
[2018-07-16 12:13] LABS: HEPATITIS A IGM NEGATIVE (NEGATIVE); HEPATITIS B CORE AB NEGATIVE (NEGATIVE)
[2018-07-16 12:24] LABS: HEPATITIS C ANTIBODY NEGATIVE (NEGATIVE)
--- NOTE | 2018-07-16 19:16 | CP.PCM.PN ---
Subjective - Date & Time of Evaluation Date of Evaluation: 07/16/18 Time of Evaluation: 19:16 - Subjective Subjective: I D NOTE NO IDENTIFICATION OF GRAM NEGATIVE RODS IN BLOOD(AWAITED) URINE CULTURE IS ESSENTIALLY NEGATIVE SOURCE OF BACTEREMIA:TO BE DETERMINED Objective - Vital Signs/Intake and Output Vital Signs (last 24 hours): Temp Pulse Resp BP Pulse Ox 97.6 F 71 18 111/63 100 07/16/18 16:25 07/16/18 16:25 07/16/18 16:25 07/16/18 16:25 07/16/18 16:55 - Medications Medications: Current Medications Acetaminophen/Butalbital/Caffeine (Fioricet) 1 tab PO Q4 PRN PRN Reason: Headache Last Admin: 07/16/18 16:47 Dose: 1 tab Albuterol (Ventolin Hfa 90 Mcg/Actuation (8 G)) 1 puff INH Q6 [facility] Last Admin: 07/16/18 16:45 Dose: Not Given Atorvastatin Calcium (Lipitor) 10 mg PO DAILY [facility] Last Admin: 07/16/18 09:58 Dose: 10 mg Dicyclomine HCl (Bentyl) 10 mg PO QID [facility] Last Admin: 07/16/18 16:44 Dose: 10 mg Enoxaparin Sodium (Lovenox) 40 mg SC DAILY [facility] PRN Reason: Protocol Last Admin: 07/16/18 09:57 Dose: 40 mg Metoclopramide HCl 10 mg/ (Sodium Chloride) 52 mls @ 300 mls/hr IVP ONCE PRN PRN Reason: Nausea/Vomiting Piperacillin Sod/Tazobactam (Sod 3.375 gm/ Sodium Chloride) 100 mls @ 100 mls/ hr IVPB Q8 [facility] PRN Reason: Protocol Last Admin: 07/16/18 10:00 Dose: 100 mls/hr Ketorolac Tromethamine (Toradol) 15 mg IVP Q8 PRN PRN Reason: Headache Last Admin: 07/16/18 01:20 Dose: 15 mg Levothyroxine Sodium (Synthroid) 50 mcg PO DAILY@0630 [facility] Last Admin: 07/16/18 07:56 Dose: 50 mcg Metoprolol Tartrate (Lopressor) 25 mg PO Q12 [facility] Last Admin: 07/16/18 10:00 Dose: 25 mg Ondansetron HCl (Zofran Tab) 4 mg PO Q8H PRN PRN Reason: Nausea/Vomiting Pantoprazole Sodium (Protonix Ec Tab) 40 mg PO DAILY [facility] Last Admin: 07/16/18 09:59 Dose: 40 mg Tramadol HCl (Ultram) 50 mg PO Q6 PRN PRN Reason: Pain, severe (8-10) Last Admin: 07/16/18 05:01 Dose: 50 mg Zolpidem Tartrate (Ambien) 10 mg PO HS PRN PRN Reason: Insomnia Last Admin: 07/16/18 00:50 Dose: 10 mg - Labs Labs: 07/16/18 06:01 07/16/18 06:01 PT 13.3 Seconds (9.8-13.1) H 07/14/18 16:18 INR 1.2 07/14/18 16:18 APTT 29.2 Seconds (25.6-37.1) 07/14/18 16:18
[2018-07-17] MEDS: Piperacillin/Tazobact 3.375 GM in Sodium Chloride 0.9% 100 ML IVPB SCH ×2 (01:03→09:42)
[2018-07-17] MEDS: Levothyroxine 50 MCG TAB PO SCH (06:26)
[2018-07-17 06:36] LABS: HEMOGLOBIN 11.9 g/dL (12.0-16.0); MEAN CELL VOLUME 88.9 fl (81.0-99.0); MEAN CORPUSCULAR HEMOGLOBIN 29.9 pg (27.0-31.0); MEAN CORPUSCULAR HGB CONC 33.6 g/dL (33.0-37.0); RBC 3.99 Mil/uL (3.80-5.20); RED CELL DISTRIBUTION WIDTH 13.2 % (11.5-14.5); WHITE BLOOD COUNT 4.6 K/uL (4.8-10.8)
[2018-07-17 06:49] LABS: BLOOD UREA NITROGEN 12 mg/dl (7-17); CALCIUM 8.4 mg/dL (8.4-10.2); GFR NON-AFRICAN AMERICAN 55
[2018-07-17] MEDS: Enoxaparin 40 mg Syringe SC SCH (09:34)
[2018-07-17] MEDS: Pantoprazole 40 mg EC Tab PO SCH (09:36)
[2018-07-17] MEDS: Albuterol HFA 90 mcg/actuation (8 g) INH SCH ×4 (09:36→21:18)
--- NOTE | 2018-07-17 11:54 | CP.PCM.PN ---
<Best Greco - Last Filed: 07/17/18 11:52> Subjective - Date & Time of Evaluation Date of Evaluation: 07/17/18 Time of Evaluation: 07:45 - Subjective Subjective: PGY-4 GI Fellow Prog Note Pt lying in bed when seen this AM. Tolerating diet and feeling overall improved. Abd pain continues to improve. 5 point ROS negative other than stated above Objective - Vital Signs/Intake and Output Vital Signs (last 24 hours): Temp Pulse Resp BP Pulse Ox 98.6 F 75 18 105/68 96 07/17/18 08:48 07/17/18 09:35 07/17/18 08:48 07/17/18 09:35 07/17/18 08:48 - Medications Medications: Current Medications Acetaminophen/Butalbital/Caffeine (Fioricet) 1 tab PO Q4 PRN PRN Reason: Headache Last Admin: 07/16/18 16:47 Dose: 1 tab Albuterol (Ventolin Hfa 90 Mcg/Actuation (8 G)) 1 puff INH Q6 [facility] Last Admin: 07/17/18 09:39 Dose: 1 puff Atorvastatin Calcium (Lipitor) 10 mg PO DAILY [facility] Last Admin: 07/17/18 09:36 Dose: 10 mg Dicyclomine HCl (Bentyl) 10 mg PO QID [facility] Last Admin: 07/17/18 09:34 Dose: 10 mg Enoxaparin Sodium (Lovenox) 40 mg SC DAILY [facility] PRN Reason: Protocol Last Admin: 07/17/18 09:34 Dose: 40 mg Metoclopramide HCl 10 mg/ (Sodium Chloride) 52 mls @ 300 mls/hr IVP ONCE PRN PRN Reason: Nausea/Vomiting Piperacillin Sod/Tazobactam (Sod 3.375 gm/ Sodium Chloride) 100 mls @ 100 mls/ hr IVPB Q8 [facility] PRN Reason: Protocol Last Admin: 07/17/18 09:42 Dose: 100 mls/hr Ketorolac Tromethamine (Toradol) 15 mg IVP Q8 PRN PRN Reason: Headache Last Admin: 07/16/18 01:20 Dose: 15 mg Levothyroxine Sodium (Synthroid) 50 mcg PO DAILY@0630 [facility] Last Admin: 07/17/18 06:26 Dose: 50 mcg Metoprolol Tartrate (Lopressor) 25 mg PO Q12 [facility] Last Admin: 07/17/18 09:35 Dose: 25 mg Ondansetron HCl (Zofran Tab) 4 mg PO Q8H PRN PRN Reason: Nausea/Vomiting Pantoprazole Sodium (Protonix Ec Tab) 40 mg PO DAILY [facility] Last Admin: 07/17/18 09:36 Dose: 40 mg Tramadol HCl (Ultram) 50 mg PO Q6 PRN PRN Reason: Pain, severe (8-10) Last Admin: 07/16/18 05:01 Dose: 50 mg Zolpidem Tartrate (Ambien) 10 mg PO HS PRN PRN Reason: Insomnia Last Admin: 07/16/18 21:26 Dose: 10 mg - Labs Labs: 07/17/18 05:55 07/17/18 05:55 PT 13.3 Seconds (9.8-13.1) H 07/14/18 16:18 INR 1.2 07/14/18 16:18 APTT 29.2 Seconds (25.6-37.1) 07/14/18 16:18 - Constitutional Appears: Well, Non-toxic - Head Exam Head Exam: ATRAUMATIC, NORMAL INSPECTION - Eye Exam Eye Exam: Conjunctival injection, EOMI. absent: Scleral icterus - ENT Exam ENT Exam: Mucous Membranes Moist, Normal External Ear Exam. absent: Mucous Membranes Dry - Respiratory Exam Respiratory Exam: Clear to Ausculation Bilateral, NORMAL BREATHING PATTERN. absent: Wheezes - GI/Abdominal Exam GI & Abdominal Exam: Soft, Tenderness (mildly in LLQ w/o guarding), Normal Bowel Sounds. absent: Bruit, Distended, Firm, Guarding, Rigid, Diminished Bowel Sounds, Hernia, Hyperactive Bowel Sounds, Hypoactive Bowel Sounds, Mass, Organomegaly, Pulsatile Mass, Rebound Assessment and Plan - Assessment and Plan (Free Text) Assessment: 67 yo Hisp Female presenting fatigue, weakness found to be febrile and tachycardic. GI consulted for biliary stricture and elevated bilirubin. # Biliary stricture, with elevated bilirubin: [address] report. No obstruction seen. Has h/o dilation in the past with unremarkable MRCP in 2013. Perhaps related to post-cholecystectomy changes. Repeat MRCP with similar dilation but persistent stricture. Therefore, will need OP EUS perhaps ERCP to evaluate. # Fever, tachycardia: Resolved. Due to GNR bactermemia, unclear source. Doubt cholangitis given improved bili and ALP. Plan: - Outpatient EUS +/- ERCP follow-up - Antibiotics per primary team Pt seen and examined with Dr. Arnold. Thank you for the consult. Will sign off please page if questions. <Raj Arnold - Last Filed: 07/17/18 14:35> Objective - Vital Signs/Intake and Output Vital Signs (last 24 hours): Temp Pulse Resp BP Pulse Ox 98.6 F 75 18 105/68 96 07/17/18 08:48 07/17/18 09:35 07/17/18 08:48 07/17/18 09:35 07/17/18 08:48 - Medications Medications: Current Medications Acetaminophen/Butalbital/Caffeine (Fioricet) 1 tab PO Q4 PRN PRN Reason: Headache Last Admin: 07/17/18 13:52 Dose: 1 tab Albuterol (Ventolin Hfa 90 Mcg/Actuation (8 G)) 1 puff INH Q6 [facility] Last Admin: 07/17/18 09:39 Dose: 1 puff Atorvastatin Calcium (Lipitor) 10 mg PO DAILY [facility] Last Admin: 07/17/18 09:36 Dose: 10 mg Dicyclomine HCl (Bentyl) 10 mg PO QID [facility] Last Admin: 07/17/18 13:49 Dose: 10 mg Enoxaparin Sodium (Lovenox) 40 mg SC DAILY [facility] PRN Reason: Protocol Last Admin: 07/17/18 09:34 Dose: 40 mg Metoclopramide HCl 10 mg/ (Sodium Chloride) 52 mls @ 300 mls/hr IVP ONCE PRN PRN Reason: Nausea/Vomiting Meropenem 1 gm/ Sodium (Chloride) 100 mls @ 100 mls/hr IVPB Q8 [facility] PRN Reason: Protocol Last Admin: 07/17/18 13:53 Dose: 100 mls/hr Ketorolac Tromethamine (Toradol) 15 mg IVP Q8 PRN PRN Reason: Headache Last Admin: 07/16/18 01:20 Dose: 15 mg Levothyroxine Sodium (Synthroid) 50 mcg PO DAILY@0630 [facility] Last Admin: 07/17/18 06:26 Dose: 50 mcg Metoprolol Tartrate (Lopressor) 25 mg PO Q12 [facility] Last Admin: 07/17/18 09:35 Dose: 25 mg Ondansetron HCl (Zofran Tab) 4 mg PO Q8H PRN PRN Reason: Nausea/Vomiting Pantoprazole Sodium (Protonix Ec Tab) 40 mg PO DAILY [facility] Last Admin: 07/17/18 09:36 Dose: 40 mg Tramadol HCl (Ultram) 50 mg PO Q6 PRN PRN Reason: Pain, severe (8-10) Last Admin: 07/16/18 05:01 Dose: 50 mg Zolpidem Tartrate (Ambien) 10 mg PO HS PRN PRN Reason: Insomnia Last Admin: 07/16/18 21:26 Dose: 10 mg - Labs Labs: 07/17/18 05:55 07/17/18 05:55 PT 13.3 Seconds (9.8-13.1) H 07/14/18 16:18 INR 1.2 07/14/18 16:18 APTT 29.2 Seconds (25.6-37.1) 07/14/18 16:18 Attending/Attestation - Attestation I have personally seen and examined this patient.: Yes I have fully participated in the care of the patient.: Yes I have reviewed all pertinent clinical information, including history, physical exam and plan: Yes Notes (Text): 07/17/18 14:31 Patient seen with GI fellow on rounds this am. This is a 67 yr old Hisp Female presenting fatigue, weakness found to be febrile and tachycardic. GI consulted for biliary stricture, elevated bilirubin and chronic dilation of CBD from 2013. No s/s of cholangitis with normal LFT. Perhaps related to post- cholecystectomy changes. Will benefit from OP EUS perhaps ERCP to evaluate. No other work up necessary right now. Will sign off.
--- NOTE | 2018-07-17 12:07 | PN ---
DATE: 07/17/2018 SUBJECTIVE: The patient seen and examined. Interim events noted. Consults noted and appreciated. Gastroenterology followup and interventions noted and appreciated. The patient remains in regular medical floor. The patient feels much better. Headache improved. Abdominal pain resolved. Tolerating food very well, moving bowel without any problem. No chest pain. No shortness of breath. PHYSICAL EXAMINATION: GENERAL: The patient is in no acute distress. VITAL SIGNS: Stable. HEART EXAM: S1 and S2, normal and regular. LUNGS: Good bilateral air exchange. ABDOMEN: Soft and nontender. EXTREMITIES: No edema. No calf swelling. No tenderness. No acute ischemia. 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 DIAGNOSTIC DATA: Available diagnostic data reviewed. ASSESSMENT AND PLAN: Overall, the patient is clinically stable. The patient is tentatively liver biopsy. Plan as ordered. Case and plan discussed with the patient. Nasir Fu MD
--- NOTE | 2018-07-17 12:10 | CP.PCM.PCO ---
Physician Communication Note - Physician Communication Note Physician Communication Note: Pt will need IV Merrem x [address] Block recommendation
[2018-07-17] MEDS: Apap-Butalbital-Caffeine 325-50-40mg Tab PO PRN (13:52)
[2018-07-17] MEDS: Meropenem 1 GM in Sodium Chloride 0.9% 100 ML IVPB SCH ×2 (13:53→16:57)
[2018-07-18] MEDS: Meropenem 1 GM in Sodium Chloride 0.9% 100 ML IVPB SCH ×2 (00:26→09:15)
[2018-07-18] MEDS: Albuterol HFA 90 mcg/actuation (8 g) INH SCH ×2 (04:19→09:16)
[2018-07-18] MEDS: Levothyroxine 50 MCG TAB PO SCH (06:31)
--- NOTE | 2018-07-18 08:30 | CP.PCM.DIS ---
Provider - Provider Date of Admission: 07/14/18 21:15 Attending physician: Nasir Fu MD Time Spent in preparation of Discharge (in minutes): 20 Diagnosis - Discharge Diagnosis (1) Abdominal pain in female Status: Acute Hospital Course - Lab Results Lab Results: Micro Results 07/14/18 16:30 Blood Blood Culture - Preliminary NO GROWTH AFTER 3 DAYS 07/15/18 10:39 Blood Blood Culture - Preliminary NO GROWTH AFTER 48 HOURS 07/15/18 10:29 Blood Blood Culture - Preliminary NO GROWTH AFTER 48 HOURS 07/14/18 16:10 Blood Blood Culture - Final Klebsiella Pneumoniae Ssp Pneu 07/14/18 16:10 Blood Gram Stain - Final 07/16/18 08:30 Blood Blood Culture - Preliminary NO GROWTH AFTER 24 HOURS 07/14/18 16:35 Throat Group A Strep Throat Culture - Final NO BETA STREP GROUP A ISOLATED. 07/14/18 16:46 Urine,Clean Catch Urine Culture - Final No Growth (<1,000 CFU/ML) Most Recent Lab Values WBC 4.6 K/uL (4.8-10.8) L 07/17/18 05:55 RBC 3.99 Mil/uL (3.80-5.20) 07/17/18 05:55 Hgb 11.9 g/dL (12.0-16.0) L 07/17/18 05:55 Hct 35.5 % (34.0-47.0) 07/17/18 05:55 MCV 88.9 fl (81.0-99.0) 07/17/18 05:55 MCH 29.9 pg (27.0-31.0) 07/17/18 05:55 MCHC 33.6 g/dL (33.0-37.0) 07/17/18 05:55 RDW 13.2 % (11.5-14.5) 07/17/18 05:55 Plt Count 100 K/uL (130-400) L 07/17/18 05:55 MPV 9.2 fl (7.2-11.7) 07/15/18 05:35 Neut % (Auto) 76.7 % (50.0-75.0) H 07/15/18 05:35 Lymph % (Auto) 14.4 % (20.0-40.0) L 07/15/18 05:35 Peach % (Auto) 7.4 % (0.0-10.0) 07/15/18 05:35 Eos % (Auto) 1.0 % (0.0-4.0) 07/15/18 05:35 Baso % (Auto) 0.5 % (0.0-2.0) 07/15/18 05:35 Neut # (Auto) 4.7 K/uL (1.8-7.0) 07/15/18 05:35 Lymph # (Auto) 0.9 K/uL (1.0-4.3) L 07/15/18 05:35 Peach # (Auto) 0.5 K/uL (0.0-0.8) 07/15/18 05:35 Eos # (Auto) 0.1 K/uL (0.0-0.7) 07/15/18 05:35 Baso # (Auto) 0.0 K/uL (0.0-0.2) 07/15/18 05:35 Neutrophils % (Manual) 90 % (42-75) H 07/14/18 16:18 Band Neutrophils % 2 % (0-2) 07/14/18 16:18 Lymphocytes % (Manual) 7 % (20-50) L 07/14/18 16:18 Monocytes % (Manual) 1 % (0-10) 07/14/18 16:18 Platelet Estimate Decreased (NORMAL) L 07/14/18 16:18 RBC Morphology Normal (NORMAL) 07/14/18 16:18 PT 13.3 Seconds (9.8-13.1) H 07/14/18 16:18 INR 1.2 07/14/18 16:18 APTT 29.2 Seconds (25.6-37.1) 07/14/18 16:18 pO2 27 mm/Hg (30-55) L 07/14/18 16:25 VBG pH 7.42 (7.32-7.43) 07/14/18 16:25 VBG pCO2 37 mmHg (40-60) L 07/14/18 16:25 VBG HCO3 23.5 mmol/L 07/14/18 16:25 VBG Total CO2 25.1 mmol/L (22-28) 07/14/18 16:25 VBG O2 Sat (Calc) 62.6 % (40-65) 07/14/18 16:25 VBG Base Excess -0.2 mmol/L (0.0-2.0) L 07/14/18 16:25 VBG Potassium 3.7 mmol/L (3.6-5.2) 07/14/18 16:25 Sodium 134.0 mmol/L (132-148) 07/14/18 16:25 Chloride 101.0 mmol/L (98-107) 07/14/18 16:25 Glucose 116 mg/dL (65-105) H 07/14/18 16:25 Lactate 1.5 mmol/L (0.7-2.1) 07/14/18 16:25 FiO2 21.0 % 07/14/18 16:25 Sodium 137 mmol/l (132-148) 07/17/18 05:55 Potassium 4.1 MMOL/L (3.6-5.0) 07/17/18 05:55 Chloride 107 mmol/L (98-107) 07/17/18 05:55 Carbon Dioxide 26 mmol/L (22-30) 07/17/18 05:55 Anion Gap 8 (10-20) L 07/17/18 05:55 BUN 12 mg/dl (7-17) 07/17/18 05:55 Creatinine 1.0 mg/dl (0.7-1.2) 07/17/18 05:55 Est GFR ( Amer) > 60 07/17/18 05:55 Est GFR (Non-Af Amer) 55 07/17/18 05:55 POC Glucose (mg/dL) 97 mg/dL (65-110) 07/16/18 10:04 Random Glucose 99 mg/dL (65-105) 07/17/18 05:55 Calcium 8.4 mg/dL (8.4-10.2) 07/17/18 05:55 Phosphorus 3.4 mg/dl (2.5-4.5) 07/16/18 06:01 Magnesium 1.9 MG/DL (1.6-2.3) 07/16/18 06:01 Total Bilirubin 1.6 mg/dl (0.2-1.3) H 07/16/18 06:01 AST 33 U/L (14-36) 07/16/18 06:01 ALT 24 U/L (9-52) 07/16/18 06:01 Alkaline Phosphatase 64 U/L (38-126) 07/16/18 06:01 Total Protein 6.3 G/DL (6.3-8.2) 07/16/18 06:01 Albumin 3.1 g/dL (3.5-5.0) L 07/16/18 06:01 Globulin 3.2 gm/dL (2.2-3.9) 07/16/18 06:01 Albumin/Globulin Ratio 1.0 (1.0-2.1) 07/16/18 06:01 TSH 3rd Generation 1.20 mIU/ML (0.46-4.68) 07/14/18 16:41 Venous Blood Potassium 3.7 mmol/L (3.6-5.2) 07/14/18 16:25 Urine Color Yellow (YELLOW) 07/14/18 16:46 Urine Clarity Clear (Clear) 07/14/18 16:46 Urine pH 6.0 (5.0-8.0) 07/14/18 16:46 Ur Specific [place] 1.013 (1.003-1.030) 07/14/18 16:46 Urine Protein 30 mg/dL (NEGATIVE) 07/14/18 16:46 Urine Glucose (UA) Neg mg/dL (Normal) 07/14/18 16:46 Urine Ketones Trace mg/dL (NEGATIVE) 07/14/18 16:46 Urine Blood Negative (NEGATIVE) 07/14/18 16:46 Urine Nitrate Negative (NEGATIVE) 07/14/18 16:46 Urine Bilirubin Negative (NEGATIVE) 07/14/18 16:46 Urine Urobilinogen 0.2-1.0 mg/dL (0.2-1.0) 07/14/18 16:46 Ur Leukocyte Esterase Neg Frida/uL (Negative) 07/14/18 16:46 Urine RBC (Auto) < 1 /hpf (0-3) 07/14/18 16:46 Urine Microscopic WBC 2 /hpf (0-5) 07/14/18 16:46 Ur Squamous Epith Cells 1 /hpf (0-5) 07/14/18 16:46 Hepatitis A IgM Ab Negative (NEGATIVE) 07/16/18 06:01 Hep Bs Antigen Negative (NEGATIVE) 07/16/18 06:01 Hep B Core IgM Ab Negative (NEGATIVE) 07/16/18 06:01 Hepatitis C Antibody Negative (NEGATIVE) 07/16/18 06:01 Influenza Typ A,B (EIA) Negative for flu a/b (NEGATIVE) 07/14/18 16:35 Grp A Beta Strep Ag Negative (NEGATIVE) 07/14/18 16:35 - Hospital Course Hospital Course: Pt seen and examined at bedside with Dr. Fu. 67 yo F with pmhx of asthma, dyslipidemia, htn admitted for abdominal pain and SIRS. GI: MRCP. follow up outpatient for liver cyst. d/c to TCU for completion of IVABX pt to f/u with pmd in [address] Nickie Patiño MD PGY2 Discharge Exam - Head Exam Head Exam: ATRAUMATIC, NORMAL INSPECTION - Eye Exam Eye Exam: EOMI - Respiratory Exam Respiratory Exam: NORMAL BREATHING PATTERN - Cardiovascular Exam Cardiovascular Exam: +S1, +S2 - Neurological Exam Neurological exam: Alert, CN II-XII Intact, Oriented x3 - Psychiatric Exam Psychiatric exam: Normal Affect, Normal Mood Discharge Plan - Discharge Medications Prescriptions: Meropenem [Merrem IV] 1 gm IVPB Q8 7 Days #21 vial - Follow Up Plan Condition: STABLE Disposition: REHAB FACILITY/REHAB UNIT Instructions: Chronic Pain (DC), Acute Abdomen (Belly Pain), Sinus Headache (DC ), Generalized Weakness (DC), Acute Abdominal Pain (DC), Acute Abdominal Pain ( GEN), Weakness (GEN) Additional Instructions: Please follow up with primary care doctor when discharged from TCU
[2018-07-18 08:33] VITALS: BP 114/68; PULSE 73; RESP 20; TEMP 98.4; O2SAT 98
[2018-07-18] MEDS: Enoxaparin 40 mg Syringe SC SCH (09:16)
[2018-07-18] MEDS: Pantoprazole 40 mg EC Tab PO SCH (09:17)
--- NOTE | 2018-07-21 14:16 | PQF ---
PROVIDER RESPONSE TEXT: Provider was unable to determine a response for this query. REVIEWER QUERY TEXT: SIRS Underlying Cause Systemic Inflammatory Response Syndrome (SIRS) is documented in the Medical Record. Please specify th e underlying cause (includes suspected or probable) Such as: -- Infectious cause / process - With organ dysfunction -- Non-infectious cause / process - Without organ dysfunction - With organ dysfunction -- Other, please specify The patient's Clinical Indicators include: SIRS doucumented in discharge summary Query created by: Marcelle Cadena 07/20/2018 1:30 PM Electronically signed by: Nasir Fu 07/21/2018 2:13 PM
== END 2018-07-18 14:55 | DRG 445 ==
LOC: H.ER 15:27 → H.ERHOLD 21:15 → H.MEDSURG1 22:41
PROVIDERS: ADMIT Internal Medicine; ATTEND Internal Medicine
DX: K83.1 Obstruction of bile duct (principal); R65.10 Systemic inflammatory response syndrome (SIRS) of non-infectious origin without acute organ dysfunction; I10 Essential (primary) hypertension; E78.5 Hyperlipidemia, unspecified; E03.9 Hypothyroidism, unspecified; K29.70 Gastritis, unspecified, without bleeding; E78.00 Pure hypercholesterolemia, unspecified; Z88.6 Allergy status to analgesic agent; Z88.5 Allergy status to narcotic agent; F41.9 Anxiety disorder, unspecified; J45.909 Unspecified asthma, uncomplicated; K76.89 Other specified diseases of liver; K31.84 Gastroparesis; Z98.84 Bariatric surgery status; G89.29 Other chronic pain

== ENCOUNTER 2018-07-18 14:38 | Inpatient (IN) | payer MEDICARE ==
[2018-07-18] MEDS ORDERED: Patient's Own Med (Meropenem [Merrem Iv] 1 GM) IVPB SCH (17:00)
[2018-07-18] MEDS: Albuterol HFA 90 mcg/actuation (8 g) INH SCH ×2 (17:17→21:52)
[2018-07-18] MEDS: Meropenem 1 GM in Sodium Chloride 0.9% 100 ML IVPB SCH (17:18)
[2018-07-18] MEDS: Apap-Butalbital-Caffeine 325-50-40mg Tab PO PRN (17:24)
[2018-07-19] MEDS: Meropenem 1 GM in Sodium Chloride 0.9% 100 ML IVPB SCH ×3 (00:55→16:51)
[2018-07-19] MEDS: Albuterol HFA 90 mcg/actuation (8 g) INH SCH ×4 (04:17→21:13)
[2018-07-19] MEDS ORDERED: Levothyroxine 100 mcg (0.1 mg) Inj IVP SCH (06:30)
[2018-07-19] MEDS: Levothyroxine 50 MCG TAB PO SCH (06:31)
[2018-07-19] MEDS: Pantoprazole 40 mg EC Tab PO SCH (08:25)
[2018-07-19] MEDS: Enoxaparin 40 mg Syringe SC SCH (08:26)
[2018-07-19] MEDS: Apap-Butalbital-Caffeine 325-50-40mg Tab PO PRN ×2 (09:50→17:39)
[2018-07-20] MEDS: Meropenem 1 GM in Sodium Chloride 0.9% 100 ML IVPB SCH ×3 (01:04→20:20)
[2018-07-20] MEDS: Albuterol HFA 90 mcg/actuation (8 g) INH SCH ×4 (04:11→22:27)
[2018-07-20] MEDS: Levothyroxine 50 MCG TAB PO SCH (06:27)
[2018-07-20] MEDS: Apap-Butalbital-Caffeine 325-50-40mg Tab PO PRN (06:28)
[2018-07-20] MEDS: Enoxaparin 40 mg Syringe SC SCH (08:41)
[2018-07-20] MEDS: Pantoprazole 40 mg EC Tab PO SCH (08:41)
--- NOTE | 2018-07-20 12:08 | PN ---
DATE: 07/20/2018 SUBJECTIVE: The patient seen and examined. Interim events noted. The patient remains in Transitional Care Unit, awake, responsive, feels okay. Denies any specific complaint of chest pain. No shortness of breath. PHYSICAL EXAMINATION: GENERAL: The patient is in no acute distress. VITAL SIGNS: Stable. HEART: S1, S2, normal and regular. LUNGS: Good bilateral air exchange. ABDOMEN: Soft, nontender. EXTREMITIES: No edema. No calf swelling. No tenderness. No acute ischemia. 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 DIAGNOSTIC DATA: Available diagnostic data reviewed. ASSESSMENT AND PLAN: Overall, the patient's general medical condition is stable. Plan as ordered. Nasir Fu MD
--- NOTE | 2018-07-20 17:06 | HP ---
CHIEF COMPLAINT: The patient was transferred from medical floor for completion of treatment. HISTORY OF PRESENT ILLNESS: This is a 67-year-old female with known case of hypertension, elevated cholesterol, asthma, who was admitted to the medical floor for sepsis and was transferred to regular floor for further management and completion of treatment. REVIEW OF SYSTEMS: At this time was negative for headache, dizziness, syncope, loss of consciousness, chest pain, shortness of breath, nausea, vomiting, diarrhea, constipation, any new joint or extremity pain. Review of systems of all other organ systems were unremarkable. PAST MEDICAL HISTORY: As mentioned earlier is significant for hypertension, asthma, dyslipidemia, and obesity. PAST SURGICAL HISTORY: Unremarkable. PERSONAL HISTORY: The patient is currently nonsmoker, nondrinker. No substance abuse. MEDICATIONS: The patient is on multiple medications which was as per reconciliation sheet, which were reviewed and ordered. ALLERGIES: THE PATIENT IS NOT ALLERGIC TO ANY MEDICATIONS. FAMILY HISTORY: Noncontributory. PHYSICAL EXAMINATION: GENERAL: A well-built, well-nourished 67-year-old female, in no acute distress. VITAL SIGNS: Temperature afebrile, pulse 88, respirations 18, blood pressure 136/76. HEENT: Pupils reacting to light. No JVD. No thyromegaly. No lymphadenopathy. No nystagmus. Normocephalic and atraumatic skull. HEART: S1 and S2, normal and regular. No significant murmurs, gallops, or rubs are heard. LUNGS: Shows good bilateral air exchange. No rales or rhonchi. ABDOMEN: Soft, nontender. No organomegaly. No fluid. Bowel sounds are present and normal. EXTREMITIES: No edema. No calf swelling. No tenderness. No acute ischemia. CADDIE: Exam is essentially unchanged and there were no signs of any acute gross focal, motor, or sensory, or neurological deficits. DIAGNOSTIC DATA: Available diagnostic data reviewed. Previous hospital records were also reviewed. ADMITTING IMPRESSION: Status post septicemia, gastroenteritis, liver lesion, hypertension, elevated cholesterol, asthma. PLAN: As ordered. Case and plan were discussed with the patient. Nasir Fu MD
[2018-07-21] MEDS: Albuterol HFA 90 mcg/actuation (8 g) INH SCH ×4 (04:19→21:11)
[2018-07-21] MEDS: Apap-Butalbital-Caffeine 325-50-40mg Tab PO PRN ×3 (04:20→15:08)
[2018-07-21] MEDS: Meropenem 1 GM in Sodium Chloride 0.9% 100 ML IVPB SCH ×3 (04:20→21:07)
[2018-07-21] MEDS: Levothyroxine 50 MCG TAB PO SCH (05:46)
[2018-07-21] MEDS: Enoxaparin 40 mg Syringe SC SCH (09:48)
[2018-07-21] MEDS: Pantoprazole 40 mg EC Tab PO SCH (09:48)
[2018-07-21 15:35] VITALS: RESP 20
--- NOTE | 2018-07-21 20:19 | CP.PCM.PN ---
<AriasTayler Y - Last Filed: 07/21/18 20:17> Subjective - Date & Time of Evaluation Date of Evaluation: 07/21/18 Time of Evaluation: 19:20 - Subjective Subjective: c/o headache today Objective - Vital Signs/Intake and Output Vital Signs (last 24 hours): Temp Pulse Resp BP Pulse Ox 97.7 F 60 20 133/75 96 07/21/18 19:40 07/21/18 19:40 07/21/18 19:40 07/21/18 19:40 07/21/18 19:40 - Medications Medications: Current Medications Acetaminophen/Butalbital/Caffeine (Fioricet) 1 tab PO Q4 PRN PRN Reason: Headache Last Admin: 07/21/18 15:08 Dose: 1 tab Albuterol (Ventolin Hfa 90 Mcg/Actuation (8 G)) 1 puff INH Q6 [facility] Last Admin: 07/21/18 15:08 Dose: 1 puff Atorvastatin Calcium (Lipitor) 10 mg PO DAILY [facility] Last Admin: 07/21/18 09:46 Dose: 10 mg Dicyclomine HCl (Bentyl) 10 mg PO QID [facility] Last Admin: 07/21/18 17:12 Dose: 10 mg Enoxaparin Sodium (Lovenox) 40 mg SC DAILY [facility] PRN Reason: Protocol Last Admin: 07/21/18 09:48 Dose: 40 mg Meropenem 1 gm/ Sodium (Chloride) 100 mls @ 100 mls/hr IVPB Q8H [facility] Last Admin: 07/21/18 13:45 Dose: 100 mls/hr Levothyroxine Sodium (Synthroid) 50 mcg PO DAILY@0630 [facility] Last Admin: 07/21/18 05:46 Dose: 50 mcg Metoprolol Tartrate (Lopressor) 25 mg PO Q12 [facility] Last Admin: 07/21/18 09:47 Dose: 25 mg Ondansetron HCl (Zofran Tab) 4 mg PO Q8H PRN PRN Reason: Nausea/Vomiting Pantoprazole Sodium (Protonix Ec Tab) 40 mg PO DAILY [facility] Last Admin: 07/21/18 09:48 Dose: 40 mg Tramadol HCl (Ultram) 50 mg PO Q6 PRN PRN Reason: Pain, moderate (4-7) Zolpidem Tartrate (Ambien) 10 mg PO HS PRN PRN Reason: Insomnia Last Admin: 07/20/18 22:24 Dose: 10 mg - Constitutional Appears: Well, No Acute Distress - Head Exam Head Exam: ATRAUMATIC, NORMAL INSPECTION - Eye Exam Eye Exam: EOMI, Normal appearance, PERRL - ENT Exam ENT Exam: Mucous Membranes Moist - Neck Exam Neck Exam: Full ROM, Normal Inspection - Respiratory Exam Respiratory Exam: Clear to Ausculation Bilateral - Cardiovascular Exam Cardiovascular Exam: REGULAR RHYTHM - GI/Abdominal Exam GI & Abdominal Exam: Soft, Normal Bowel Sounds - Extremities Exam Extremities Exam: Full ROM, Normal Inspection - Back Exam Back Exam: NORMAL INSPECTION - Neurological Exam Neurological Exam: Alert, Awake, Oriented x3 - Skin Skin Exam: Normal Color, Warm Assessment and Plan - Assessment and Plan (Free Text) Assessment: 67 yo F with pmhx of asthma, dyslipidemia, htn admitted for abdominal pain and SIRS. s/p MRCP in TCU for completion of IVABX, continue current medical management, encourage coffee and tea for headache <Fu,Nasir K - Last Filed: 07/22/18 10:52> Objective - Vital Signs/Intake and Output Vital Signs (last 24 hours): Temp Pulse Resp BP Pulse Ox 98.1 F 60 20 123/66 98 07/22/18 08:57 07/22/18 08:57 07/22/18 08:57 07/22/18 08:57 07/22/18 08:57 - Medications Medications: Current Medications Acetaminophen/Butalbital/Caffeine (Fioricet) 1 tab PO Q4 PRN PRN Reason: Headache Last Admin: 07/22/18 05:53 Dose: 1 tab Albuterol (Ventolin Hfa 90 Mcg/Actuation (8 G)) 1 puff INH Q6 [facility] Last Admin: 07/22/18 10:02 Dose: 1 puff Atorvastatin Calcium (Lipitor) 10 mg PO DAILY [facility] Last Admin: 07/22/18 08:35 Dose: 10 mg Dicyclomine HCl (Bentyl) 10 mg PO QID [facility] Last Admin: 07/22/18 08:34 Dose: 10 mg Meropenem 1 gm/ Sodium (Chloride) 100 mls @ 100 mls/hr IVPB Q8H [facility] Last Admin: 07/22/18 04:54 Dose: 100 mls/hr Levothyroxine Sodium (Synthroid) 50 mcg PO DAILY@0630 [facility] Last Admin: 07/22/18 05:53 Dose: 50 mcg Metoprolol Tartrate (Lopressor) 25 mg PO Q12 [facility] Last Admin: 07/22/18 08:34 Dose: 25 mg Ondansetron HCl (Zofran Tab) 4 mg PO Q8H PRN PRN Reason: Nausea/Vomiting Pantoprazole Sodium (Protonix Ec Tab) 40 mg PO DAILY [facility] Last Admin: 07/22/18 08:35 Dose: 40 mg Tramadol HCl (Ultram) 50 mg PO Q6 PRN PRN Reason: Pain, moderate (4-7) Last Admin: 07/22/18 04:58 Dose: 50 mg Zolpidem Tartrate (Ambien) 10 mg PO HS PRN PRN Reason: Insomnia Last Admin: 07/21/18 22:18 Dose: 10 mg Assessment and Plan - Assessment and Plan (Free Text) Assessment: Patient was personally seen and examined by me in rounds with residents. Available labs and diagnostic data reviewed. Case, Patient's condition and management plan discussed with residents in rounds. Agree with resident's progress note. Plan: As ordered.
[2018-07-22] MEDS: Albuterol HFA 90 mcg/actuation (8 g) INH SCH ×4 (04:54→22:48)
[2018-07-22] MEDS: Meropenem 1 GM in Sodium Chloride 0.9% 100 ML IVPB SCH ×3 (04:54→21:24)
[2018-07-22] MEDS: Levothyroxine 50 MCG TAB PO SCH (05:53)
[2018-07-22] MEDS: Apap-Butalbital-Caffeine 325-50-40mg Tab PO PRN (05:53)
--- NOTE | 2018-07-22 07:47 | PN ---
DATE: 07/22/2018 SUBJECTIVE: The patient was seen and examined. Interim events noted. The patient remains in transitional care unit. Feels okay. Denies any chest pain or shortness of breath. PHYSICAL EXAMINATION: GENERAL: The patient is in no acute distress. VITAL SIGNS: Stable. HEART: S1, S2, normal and regular. LUNGS: Good bilateral air exchange. ABDOMEN: Soft and nontender. EXTREMITIES: No calf swelling or tenderness. No acute ischemia. No edema. STOPE MINER: Exam is essentially unchanged. DIAGNOSTIC DATA: Available diagnostic data reviewed. ASSESSMENT AND PLAN: Overall, the patient's general medical condition is stable. Plan as ordered. Nasir Fu MD
[2018-07-22] MEDS: Pantoprazole 40 mg EC Tab PO SCH (08:35)
[2018-07-22] MEDS: Enoxaparin 40 mg Syringe SC SCH (08:35)
[2018-07-23] MEDS: Meropenem 1 GM in Sodium Chloride 0.9% 100 ML IVPB SCH ×3 (05:02→21:30)
[2018-07-23] MEDS: Albuterol HFA 90 mcg/actuation (8 g) INH SCH ×4 (05:03→21:31)
[2018-07-23] MEDS: Levothyroxine 50 MCG TAB PO SCH (06:18)
--- NOTE | 2018-07-23 08:18 | PN ---
DATE: 07/23/2018 SUBJECTIVE: The patient was seen and examined. Interim events noted. The patient remains in Transitional Care Unit. The patient is sleeping, arousable, feels okay. Denies any specific complaint. No chest pain. No shortness of breath. No urinary symptoms. PHYSICAL EXAMINATION: GENERAL: The patient is in no acute distress. VITAL SIGNS: Stable. Physical exam is essentially unchanged. Diagnostic data available. Diagnostic data reviewed. Overall, the patient's general medical condition is stable. Plan as ordered. Nasir Fu MD
[2018-07-23 08:33] LABS: HEMOGLOBIN 12.1 g/dL (12.0-16.0); MEAN CELL VOLUME 87.9 fl (81.0-99.0); MEAN CORPUSCULAR HEMOGLOBIN 29.8 pg (27.0-31.0); MEAN CORPUSCULAR HGB CONC 33.9 g/dL (33.0-37.0); RBC 4.05 Mil/uL (3.80-5.20); WHITE BLOOD COUNT 3.3 K/uL (4.8-10.8)
[2018-07-23 08:57] LABS: ALBUMIN 3.2 g/dL (3.5-5.0); BLOOD UREA NITROGEN 13 mg/dl (7-17); CALCIUM 8.7 mg/dL (8.4-10.2); GFR NON-AFRICAN AMERICAN > 60
[2018-07-23 08:58] LABS: ALB/GLOB RATIO 0.9 (1.0-2.1); ALT/SGPT 32 U/L (9-52); AST/SGOT 44 U/L (14-36)
[2018-07-23] MEDS: Pantoprazole 40 mg EC Tab PO SCH (08:59)
[2018-07-23] MEDS: Apap-Butalbital-Caffeine 325-50-40mg Tab PO PRN (11:01)
[2018-07-23 15:40] LABS: SQUAMOUS EPITHIAL 1 /hpf (0-5); URINE BILIRUBIN NEGATIVE (NEGATIVE); URINE BLOOD NEGATIVE (NEGATIVE); URINE CLARITY SLIGHTY-CLOUDY (Clear); URINE COLOR YELLOW (YELLOW); URINE GLUCOSE (UA) NEG (Normal); URINE LEUKOCYTE ESTERASE NEG Leu/uL (Negative); URINE PROTEIN NEGATIVE (NEGATIVE); URINE UROBILINOGEN 0.2-1.0 mg/dL (0.2-1.0)
--- NOTE | 2018-07-23 16:49 | CP.PCM.PN ---
Subjective - Date & Time of Evaluation Date of Evaluation: 07/23/18 Time of Evaluation: 16:50 - Subjective Subjective: I D NOTE HAS RECEIVED 7 DAY IV ANTIBIOTIC TREATMENT FOR KLEBSIELLA. SHE IS TO BE DISCHARGED ON 7 DAYS PO CIPROFLOXIN 500MG PO BID Objective - Vital Signs/Intake and Output Vital Signs (last 24 hours): Temp Pulse Resp BP Pulse Ox 96.8 F L 65 20 129/71 94 L 07/23/18 10:00 07/23/18 10:00 07/23/18 10:00 07/23/18 10:00 07/23/18 10:00 - Medications Medications: Current Medications Acetaminophen/Butalbital/Caffeine (Fioricet) 1 tab PO Q4 PRN PRN Reason: Headache Last Admin: 07/23/18 11:01 Dose: 1 tab Albuterol (Ventolin Hfa 90 Mcg/Actuation (8 G)) 1 puff INH Q6 [facility] Last Admin: 07/23/18 10:11 Dose: 1 puff Atorvastatin Calcium (Lipitor) 10 mg PO DAILY [facility] Last Admin: 07/23/18 08:59 Dose: 10 mg Dicyclomine HCl (Bentyl) 10 mg PO QID [facility] Last Admin: 07/23/18 13:04 Dose: 10 mg Enoxaparin Sodium (Lovenox) 40 mg SC DAILY [facility] PRN Reason: Protocol Meropenem 1 gm/ Sodium (Chloride) 100 mls @ 100 mls/hr IVPB Q8H [facility] Last Admin: 07/23/18 13:04 Dose: 100 mls/hr Levothyroxine Sodium (Synthroid) 50 mcg PO DAILY@0630 [facility] Last Admin: 07/23/18 06:18 Dose: 50 mcg Metoprolol Tartrate (Lopressor) 25 mg PO Q12 [facility] Last Admin: 07/23/18 08:58 Dose: 25 mg Ondansetron HCl (Zofran Tab) 4 mg PO Q8H PRN PRN Reason: Nausea/Vomiting Pantoprazole Sodium (Protonix Ec Tab) 40 mg PO DAILY [facility] Last Admin: 07/23/18 08:59 Dose: 40 mg Zolpidem Tartrate (Ambien) 5 mg PO HS PRN PRN Reason: Insomnia - Labs Labs: 07/23/18 08:19 07/23/18 08:19
[2018-07-23] MEDS: Enoxaparin 40 mg Syringe SC SCH (17:16)
[2018-07-24] MEDS: Albuterol HFA 90 mcg/actuation (8 g) INH SCH ×2 (04:56→09:17)
[2018-07-24] MEDS: Meropenem 1 GM in Sodium Chloride 0.9% 100 ML IVPB SCH (04:56)
[2018-07-24] MEDS: Levothyroxine 50 MCG TAB PO SCH (05:52)
[2018-07-24 07:38] VITALS: BP 132/71; PULSE 60; TEMP 97.9; O2SAT 94
[2018-07-24] MEDS: Pantoprazole 40 mg EC Tab PO SCH (08:23)
[2018-07-24] MEDS: Enoxaparin 40 mg Syringe SC SCH (08:23)
[2018-07-24] MEDS: Apap-Butalbital-Caffeine 325-50-40mg Tab PO PRN (10:52)
== END 2018-07-24 13:16 | disposition home or self-care (01) | DRG 872 ==
LOC: H.TCU 15:08
PROVIDERS: ADMIT Internal Medicine; ATTEND Internal Medicine
PROC: F08Z1ZZ Dressing Techniques Treatment (ICD-10-PCS; principal; 2018-07-18)
DX: A41.59 Other Gram-negative sepsis (principal); Z68.41 Body mass index [BMI] 40.0-44.9, adult; E78.00 Pure hypercholesterolemia, unspecified; E78.5 Hyperlipidemia, unspecified; I10 Essential (primary) hypertension; J45.909 Unspecified asthma, uncomplicated; Z88.6 Allergy status to analgesic agent; Z88.5 Allergy status to narcotic agent; E66.9 Obesity, unspecified; K52.9 Noninfective gastroenteritis and colitis, unspecified; K76.9 Liver disease, unspecified; R51 Headache

== ENCOUNTER 2018-10-31 08:32 | Day surgery (SDC) | payer MEDICARE ==
[2018-10-31 09:07] VITALS: BMI 43.0
[2018-10-31] MEDS ORDERED: Lactated Ringer's 500 ML IV ONE (09:09)
[2018-10-31 09:18] VITALS: O2SAT 100
[2018-10-31] MEDS ORDERED: Propofol 10 mg/ml Inj (20 ML) ONE ×2 (09:26→09:56)
[2018-10-31 09:57] VITALS: TEMP 98
[2018-10-31 10:14] VITALS: BP 117/62; PULSE 52; RESP 16
== END 2018-10-31 10:18 | disposition home or self-care (01) ==
LOC: H.ENDO 08:32
PROVIDERS: ATTEND Internal Medicine Gastroenterology
DX: K31.89 Other diseases of stomach and duodenum (principal); E78.5 Hyperlipidemia, unspecified; I10 Essential (primary) hypertension; Z98.0 Intestinal bypass and anastomosis status; R12 Heartburn; K21.9 Gastro-esophageal reflux disease without esophagitis
CPT/HCPCS: 43239; 88305; J2001; J2704; J7120

== ENCOUNTER 2019-03-25 16:19 | Emergency (ER) | payer MEDICARE, OTHER ==
[2019-03-25 16:19] VITALS: BMI 43.0
[2019-03-25 16:29] VITALS: BP 164/77; PULSE 64; RESP 15; TEMP 98.3; O2SAT 98
[2019-03-25] MEDS ORDERED: Sodium Chloride 0.9% 1,000 ML IV STA (16:33)
--- NOTE | 2019-03-25 16:55 | ED PDOC ---
HPI: Abdomen Time Seen by Provider: 03/25/19 16:31 Chief Complaint (Nursing): Abdominal Pain Chief Complaint (Provider): Abdominal Pain History Per: Patient History/Exam Limitations: no limitations Onset/Duration Of Symptoms: Days (x 1 week) Current Symptoms Are (Timing): Still Present Severity: Severe Location Of Pain/Discomfort: LLQ Quality Of Discomfort: "Pain" Associated Symptoms: Diarrhea Additional Complaint(s): 68 year old female with a history of gall bladder disease and HTN presents to the ED with one week of worsening LLQ pain and 1 episode of diarrhea. Patient reports she was planning to see her PMD this morning. However, the appointment was cancelled because the doctor is sick. She was going to wait until tomorrow, but the pain became severe. It was initially diffuse. Now, it is localized to the LLQ. Of note, patient had an unremarkable colonoscopy 1 year ago. Denies nausea, vomiting, blood in stool or fever. PMD: Dr. David Valladares Past Medical History Reviewed: Historical Data, Nursing Documentation, Vital Signs Vital Signs: Last Vital Signs Temp 98.3 F 03/25/19 16:28 Pulse 64 03/25/19 16:28 Resp 15 03/25/19 16:28 BP 164/77 H 03/25/19 16:28 Pulse Ox 98 03/25/19 16:28 Primary Care Provider: David Valladares - Medical History PMH: Anxiety, Arthritis, Asthma, Gastritis, Gall Bladder Disease, HTN, Hypercholesterolemia, Hyperthyroidism, Hypothyroidism Denies: Chronic Kidney Disease - Surgical History Surgical History: Cholecystectomy - Family History Family History: States: Unknown Family Hx - Home Medications Home Medications: Ambulatory Orders Medication Instructions Recorded Levothyroxine Sodium 50 mcg PO DAILY 09/17/14 Melatonin 10 mg PO HS 09/17/14 Metoprolol Tartrate 25 mg PO Q12 09/17/14 Simvastatin 20 mg PO DAILY 09/17/14 Albuterol HFA [Ventolin HFA 90 1 puff INH Q6 11/15/14 mcg/actuation (8 g)] Acetaminophen/Butalbital/Caf 1 tab PO Q4 PRN tab 07/17/18 [Fioricet] Omeprazole 40 mg PO DAILY 10/31/18 Dicyclomine [Dicyclomine HCl] 10 mg PO Q6 PRN #30 cap 03/25/19 Ibuprofen [Motrin] 600 mg PO Q6 #30 tab 03/25/19 - Allergies Allergies/Adverse Reactions: Allergies Allergy/AdvReac Type Severity Reaction Status Date / Time morphine Allergy RASH Verified 03/25/19 16:30 oxycodone HCl [From Percocet] AdvReac DIZZINESS Verified 03/25/19 16:30 Review of Systems ROS Statement: Except As Marked, All Systems Reviewed And Found Negative Constitutional: Negative for: Fever Gastrointestinal: Positive for: Abdominal Pain, Diarrhea (x 1). Negative for: Nausea, Vomiting, Hematochezia Physical Exam - Reviewed Nursing Documentation Reviewed: Yes Vital Signs Reviewed: Yes - Physical Exam Appears: Positive for: No Acute Distress Head Exam: Positive for: ATRAUMATIC, NORMAL INSPECTION, NORMOCEPHALIC Skin: Positive for: Normal Color, Warm, Dry Eye Exam: Positive for: EOMI, Normal appearance, PERRL Neck: Positive for: Normal, Painless ROM, Supple Cardiovascular/Chest: Positive for: Regular Rate, Rhythm. Negative for: Murmur Respiratory: Positive for: Normal Breath Sounds. Negative for: Respiratory Distress Gastrointestinal/Abdominal: Positive for: Tenderness (to the palpation of the lower left quadrant). Negative for: Mass, Guarding Extremity: Positive for: Normal ROM, Swelling (enlargement of bilateral legs). Negative for: Pedal Edema, Other (edema or exudates) Neurological/Psych: Positive for: Awake, Alert, Normal Tone, Oriented (x 3). Negative for: Motor/Sensory Deficits - Laboratory Results Result Diagrams: 03/25/19 17:07 03/25/19 17:07 - ECG O2 Sat by Pulse Oximetry: 98 (RA) Pulse Ox Interpretation: Normal Medical Decision Making Medical Decision Makin:32 MDM: worsening LLQ pain with diarrhea Workup for possible diverticulitis vs other abdominal pathologies Labs, CT abd/ pelvis, Toradol Reassess 21:38 CT FINDINGS: LUNG BASES: The lung bases appear clear. No pleural effusions are seen. LIVER: A 1.0 cm round hypodense on is seen in the lower right hepatic lobe thought compatible with a small cyst. Otherwise, unremarkable. GALLBLADDER AND BILE DUCTS: Status post cholecystectomy.. No biliary ductal dilatation is evident. PANCREAS: Unremarkable. SPLEEN: Unremarkable. ADRENAL GLANDS: Unremarkable. KIDNEYS, URETERS, AND BLADDER: The kidneys appear within normal limits. There is no hydronephrosis or hydro ureter. No urinary calculi are seen. The urinary bladder appeared normal in size and configuration. STOMACH AND BOWEL: Perigastric surgical sutures and su-jejunal intestinal sutures are noted tho ught compatible with previous gastric bypass surgery. No evidence of bowel obstruction. No evidence suggesting enteritis or colitis. APPENDIX: No evidence of acute appendicitis on CT examination. PERITONEUM: No free fluid. No free air. LYMPH NODES: No lymphadenopathy is evident. REPRODUCTIVE: Incidental note is made of a 1.0 cm calcified degenerating uterine fibroid in the anterior right uterine body. Otherwise, unremarkable as visualized. VASCULATURE: No evidence of abdominal aortic aneurysm. Relatively minor atherosclerotic vascular plaquing is present. BONES: No aggressive appearing osseous lesion. No acute osseous pathology evident. There is disc interspace narrowing with vacuum disc phenomenon noted at L5-S1 compatible with disc desiccation and moderate degenerative disc disease. IMPRESSION: 1. No acute intra-abdominal or pelvic abnormality. 2. Status post cholecystectomy. 3. 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 4. Evidence of moderate degenerative disc disease at L5-S1. 22:42 Labs within normal limits. Pain improved. CT unremarkable. Will be discharged home. Patient will contact Dr. Valladares for additional follow up. Given referral for truck unloader if symptoms do not improve. Return parameters discussed including if patient develops fever or begins vomiting. Scribe Attestation: Documented by Lenora Garibay, acting as a scribe for Addie Diaz MD Provider Scribe Attestation: All medical record entries made by the Scribe were at my direction and personally dictated by me. I have reviewed the chart and agree that the record accurately reflects my personal performance of the history, physical exam, medical decision making, and the department course for this patient. I have also personally directed, reviewed, and agree with the discharge instructions and disposition. Disposition - Clinical Impression Clinical Impression: Abdominal discomfort - Disposition Referrals: Ankit Navarro MD, PhD [Staff Provider] - Disposition: Routine/Home Disposition Time: 22:42 Condition: STABLE Additional Instructions: Follow up with Dr. Valladares and with truck unloader. Take pain medication as prescribed. Return to the emergency department if symptoms worsen or if new symptoms develop. Prescriptions: Dicyclomine [Dicyclomine HCl] 10 mg PO Q6 PRN #30 cap PRN Reason: Pain, Moderate (4-7) Ibuprofen [Motrin] 600 mg PO Q6 #30 tab Instructions: Acute Abdomen (Belly Pain), Adult (DC) Forms: EX[employer] (Chilean)
[2019-03-25 17:25] LABS: BLOOD UREA NITROGEN 16 mg/dl (7-17); CALCIUM 9.2 mg/dL (8.4-10.2); GFR NON-AFRICAN AMERICAN 55; LIPASE 153 U/L (23-300); SQUAMOUS EPITHIAL < 1 /hpf (0-5); URINE BACTERIA RARE (<OCC); URINE BILIRUBIN NEGATIVE (NEGATIVE); URINE BLOOD NEGATIVE (NEGATIVE); URINE CLARITY CLEAR (Clear); URINE COLOR STRAW (YELLOW); URINE GLUCOSE (UA) NEG (NEGATIVE); URINE LEUKOCYTE ESTERASE NEG Leu/uL (Negative); URINE PROTEIN NEGATIVE (NEGATIVE); URINE UROBILINOGEN 0.2-1.0 mg/dL (0.2-1.0)
[2019-03-25 17:29] LABS: BASO # 0.1 K/uL (0.0-0.2); BASO % 1.3 % (0.0-2.0); EOS # 0.1 K/uL (0.0-0.7); EOS % 3.1 % (0.0-4.0); HEMOGLOBIN 13.3 g/dL (12.0-16.0); LYMPH % 44.1 % (20.0-40.0); MEAN CELL VOLUME 89.4 fl (81.0-99.0); MEAN CORPUSCULAR HEMOGLOBIN 29.2 pg (27.0-31.0); MEAN CORPUSCULAR HGB CONC 32.6 g/dL (33.0-37.0); MEAN PLATELET VOLUME 9.9 fl (7.2-11.7); MONO # 0.4 K/uL (0.0-0.8); MONO % 8.3 % (0.0-10.0); NEUT # 1.9 K/uL (1.8-7.0); NEUT % 43.2 % (50.0-75.0); NRBC % 0.1 % (0.0-0.0); RBC 4.57 Mil/uL (3.80-5.20); RED CELL DISTRIBUTION WIDTH 13.8 % (11.5-14.5); WHITE BLOOD COUNT 4.5 K/uL (4.8-10.8)
[2019-03-25 18:04] LABS: ALB/GLOB RATIO 1.2 (1.0-2.1); ALBUMIN 4.7 g/dL (3.5-5.0); ALT/SGPT 12 U/L (9-52); AST/SGOT 49 U/L (14-36)
[2019-03-25] MEDS ORDERED: Iohexol 300 100 ML IJ ONE (19:35)
[2019-03-25] MEDS ORDERED: Sodium Chloride 0.9% 0 ML IV ONE (19:35)
--- NOTE | 2019-03-26 09:17 | CT ---
Date of service: 03/25/2019 PROCEDURE: CT Abdomen and Pelvis without intravenous contrast HISTORY: abdominal pain, worse LLQ COMPARISON: 07/14/2018 TECHNIQUE: Without contrast.. Contrast dose: 0 Radiation dose: Total exam DLP = 826.61 mGy-cm. This CT exam was performed using one or more of the following dose reduction techniques: Automated exposure control, adjustment of the mA and/or kV according to patient size, and/or use of iterative reconstruction technique. FINDINGS: LOWER THORAX: Unremarkable. LIVER: Normal size, contour and attenuation. No biliary dilatation. In the lateral segment of the left hepatic lobe, abutting the anterior capsule, there is a nonspecific 9 mm rounded low-attenuation lesion unchanged from previous examination. On prior contrast enhanced examination, there was a 1.5 cm rounded low-attenuation lesion. On the current examination, only appreciable with narrowed windows due to the absence of intravenous contrast administration, there is a 10 mm rounded low-attenuation lesion, decreased in size. There is a 10 mm rounded low-attenuation lesion in the anterior inferior right hepatic lobe unchanged from prior examination. No other mass is identified. GALLBLADDER AND BILE DUCTS: Status post cholecystectomy. Dilatation of the common bile duct up to 9 mm, consistent with prior cholecystectomy and patient age. PANCREAS: Unremarkable. No gross lesion or ductal dilatation. SPLEEN: Unremarkable. ADRENALS: Unremarkable. No mass. KIDNEYS AND URETERS: Unremarkable. No hydronephrosis. No solid mass. VASCULATURE: Unremarkable. No aortic aneurysm. There is atherosclerotic calcification of the abdominal aorta. BOWEL: Status post gastric bypass. No bowel obstruction. The gastrojejunostomy and jejunojejunostomy anastomoses appear unremarkable. No bowel obstruction. Very mild sigmoid diverticulosis without evidence of diverticulitis. No other abnormal bowel loops are appreciated. APPENDIX: Unremarkable. Normal appendix. PERITONEUM: Unremarkable. No free fluid. No free air. LYMPH NODES: Unremarkable. No enlarged lymph nodes. BLADDER: Nondistended. Unable to evaluate. REPRODUCTIVE: Uterus significant for a solitary coarse calcification most likely representing a calcified degenerated fibroid. BONES: No acute fracture. OTHER FINDINGS: None. IMPRESSION: Status post gastric bypass surgery. Sigmoid diverticulosis without evidence of diverticulitis. Several nonspecific small low-attenuation lesions in the liver 1 of which has decreased in size compared to the prior contrast enhanced CT examination of 07/14/2018. Status post cholecystectomy with mild dilatation of the common bile duct, consistent with patient age and cholecystectomy status. The preliminary findings for this examination were reported by [facility] at 9:28 p.m. on 03/25/2019. There is concurrence of this report with the preliminary findings.
--- NOTE | 2019-03-26 14:35 | RAD ---
Date of service: 03/25/2019 HISTORY: possible admission COMPARISON: 07/14/2018 TECHNIQUE: 1 view obtained. FINDINGS: LUNGS: No active pulmonary disease. PLEURA: No significant pleural effusion identified, no pneumothorax apparent. CARDIOVASCULAR: No aortic atherosclerotic calcification present. Normal cardiac size. No pulmonary vascular congestion. OSSEOUS STRUCTURES: No significant abnormalities. VISUALIZED UPPER ABDOMEN: Normal. OTHER FINDINGS: None. IMPRESSION: No active disease.
== END 2019-03-25 22:57 | disposition home or self-care (01) ==
LOC: H.ER 16:19
DX: R10.9 Unspecified abdominal pain (principal); E03.9 Hypothyroidism, unspecified; E05.90 Thyrotoxicosis, unspecified without thyrotoxic crisis or storm; E78.00 Pure hypercholesterolemia, unspecified; I10 Essential (primary) hypertension; J45.909 Unspecified asthma, uncomplicated; Z79.899 Other long term (current) drug therapy; Z88.5 Allergy status to narcotic agent; Z90.49 Acquired absence of other specified parts of digestive tract; Z98.84 Bariatric surgery status; M51.37 Other intervertebral disc degeneration, lumbosacral region
CPT/HCPCS: 71045; 74176; 80053; 81003; 83690; 85025; 96361; 96374; 96375; 96376; 99284; C9113; J1885; J2765; J7030